=== PATIENT | male | born 1945 | race Caucasian/White ===

== ENCOUNTER 2017-05-13 07:35 | Emergency (ER) | payer MEDICARE, BC ==
[2017-05-13] MEDS ORDERED: Sodium Chloride 0.9% 2.5 ML Syringe FLUSH PRN ×2 (07:42)
[2017-05-13] MEDS ORDERED: Sodium Chloride 0.9% 1,000 ML IV ONE (07:42)
[2017-05-13] MEDS ORDERED: Ondansetron 4 MG/2 ML SDV IVPUSH ONE ×2 (07:42→11:27)
[2017-05-13] MEDS ORDERED: Sodium Chloride 0.9% 10 ML Syringe FLUSH PRN (07:42)
[2017-05-13] MEDS ORDERED: HYDROmorphone 1 MG/ML Syringe IVPUSH ONE (07:42)
[2017-05-13] MEDS ORDERED: Pantoprazole 40 MG Vial IVPUSH ONE (07:47)
--- NOTE | 2017-05-13 07:47 | EDM.PDOC ---
ED HPI GENERAL MEDICAL PROBLEM - General Chief Complaint: Abdominal Pain Stated Complaint: THROWING UP Time Seen by Provider: 05/13/17 07:36 - History of Present Illness INITIAL COMMENTS - FREE TEXT/NARRATIVE: HISTORY AND PHYSICAL: History of present illness: The patient is a 71-year-old male who follows at [facility] with Dr. Fleiz Mendes and has a history of cardiac disease with stents, hypertension, and a Juan -en-Y done in 2004 for peptic ulcer disease--- which included a cholecystectomy- -as well as an appendectomy and presents with onset of vomiting and diarrhea with abdominal pain that started last evening. Patient states he ate at a local restaurant last evening and the symptoms started after that. He states that the abdominal pain began after the vomiting and diarrhea. He had a normal day yesterday and has had no fevers chills or urinary complaints with the symptoms. He has no history of bowel obstructions and takes antacids on a regular basis and has had no history of problems with his peptic ulcer disease after his surgery. He has no chest pain or shortness of breath. He takes no anticoagulation therapy that he admits to. He can't keep any fluids down and has been nonstop vomiting now dry heaving and he has had at least 15 episodes of diarrhea which were mushy than watery and that are not black or bloody. His abdominal pain is diffuse and not localized right or left upper or lower. He did not take any medication for these problems. Patient does state that he is very thirsty when she could tolerate fluids. Note that the patient does take chronic pain medications for chronic hip pain Review of systems: As per history of present illness and below otherwise all systems reviewed and negative. Past medical history: As per history of present illness and as reviewed below otherwise noncontributory. Surgical history: As per history of present illness and as reviewed below otherwise noncontributory. Social history: No reported history of drug or alcohol abuse. Family history: As per history of present illness and as reviewed below otherwise noncontributory. Physical exam: Gen.: Well-developed well-nourished male who is nontoxic looks uncomfortable in the room and has some dry heaves. Vital signs of the note by me. HEENT: Atraumatic, normocephalic, pupils reactive, negative for conjunctival pallor or scleral icterus, mucous membranes dry, throat clear, neck supple, nontender, trachea midline. Lungs: Clear to auscultation, breath sounds equal bilaterally, chest nontender. Heart: S1S2, regular, negative for clicks, rubs, or JVD. Abdomen: Soft, nondistended, nontender. No specific area of tenderness appreciated on palpation and there is no tympany on percussion. Bowel sounds are hypoactive on my evaluation. There is no rebound or guarding. Negative for masses or hepatosplenomegaly. Negative for costovertebral tenderness. Pelvis: Stable nontender. Genitourinary: Deferred. Rectal: Deferred. Extremities: Atraumatic, negative for cords or calf pain. Neurovascular unremarkable. Neuro: Awake, alert, oriented. Cranial nerves II through XII unremarkable. Cerebellum unremarkable. Motor and sensory unremarkable throughout. Exam nonfocal. Diagnostics: CBC CMP amylase lipase UA CT scan of the abdomen and pelvis stool for Salmonella Shigella and culture Therapeutics: IV fluids and Zofran and Dilaudid Protonix Stool was collected in the ER and sent to the lab or study. It was light brown in color liquidy and foul-smelling. Patient and are aware of all testing results and care plan for home which includes Bentyl and Zofran hydration and bland diet. I've advised him that the stool culture will come back in several days and we will recontact them if any treatment is needed. I've advised him to follow-up with primary care and reasons to return to the ED Impression: Vomiting and diarrhea, mild dehydration Definitive disposition and diagnosis as appropriate pending reevaluation and review of above. Abdomen Pain Score (Numeric/FACES): 7 - Related Data Allergies Allergy/AdvReac Type Severity Reaction Status Date / Time Izspkun-Rbz-Sst Reductase Allergy Cannot Verified 05/13/17 07:39 Inhibitor Remember Home Meds: Home Meds Ferrous Gluconate [Iron] 150 units PO DAILY 01/06/17 [History] Hydrocodone/Acetaminophen [Hydrocodon-Acetaminophn 10-325] 1 - 2 tab PO Q6H PRN 01/06/17 [History] Olmesartan/Hydrochlorothiazide [Benicar HCT 20-12.5 MG] 1 tab PO DAILY 01/06/17 [History] Omeprazole 20 mg PO BIDAC 01/06/17 [History] Ibuprofen [Advil] 800 mg PO Q6HR 05/13/17 [History] Past Medical History Cardiovascular History: Reports: Other (See Below) Other Cardiovascular History: blockage, 2 stents placed Musculoskeletal History: Reports: Osteoarthritis Psychiatric History: Reports: Anxiety - Infectious Disease History Infectious Disease History: Reports: Chicken Pox - Past Surgical History HEENT Surgical History: Reports: Naso-Sinus Surgery Cardiovascular Surgical History: Reports: Coronary Artery Stent Social & Family History - Family History Family Medical History: Noncontributory - Tobacco Use Smoking Status *Q: Never Smoker - Caffeine Use Caffeine Use: Reports: None - Recreational Drug Use Recreational Drug Use: No ED ROS GENERAL - Review of Systems Review Of Systems: ROS reveals no pertinent complaints other than HPI. ED EXAM, GENERAL - Physical Exam Exam: See Below (See dictation) Course - Vital Signs Last Recorded V/S: Last Vital Signs Temp 36.8 C 05/13/17 09:52 Pulse 86 05/13/17 09:52 Resp 16 05/13/17 09:52 BP 126/70 05/13/17 09:52 Pulse Ox 93 L 05/13/17 09:52 - Orders/Labs/Meds Orders: Active Orders 24 hr Category Date Time Status CULTURE STOOL + CAMPY+SHIGATOX [RM] Stat Lab 05/13/17 09:30 Results Ondansetron [Zofran] Med 05/13/17 11:27 Once 4 mg IVPUSH ONETIME ONE Sodium Chloride 0.9% [Normal Saline] 1,000 ml Med 05/13/17 09:15 Active IV ASDIRECTED Sodium Chloride 0.9% [Saline Flush] Med 05/13/17 07:42 Active 10 ml FLUSH ASDIRECTED PRN Sodium Chloride 0.9% [Saline Flush] Med 05/13/17 07:42 Active 2.5 ml FLUSH ASDIRECTED PRN Sodium Chloride 0.9% [Saline Flush] Med 05/13/17 07:42 Active 2.5 ml FLUSH ASDIRECTED PRN Saline Lock Insert [OM.PC] Stat Oth 05/13/17 07:42 Ordered Medication Orders Sodium Chloride (Normal Saline) 1,000 mls @ 125 mls/hr IV ASDIRECTED PATRICE Last Admin: 05/13/17 09:18 Dose: 125 mls/hr Ondansetron HCl (Zofran) 4 mg IVPUSH ONETIME ONE Stop: 05/13/17 11:28 Sodium Chloride (Saline Flush) 2.5 ml FLUSH ASDIRECTED PRN PRN Reason: Keep Vein Open Last Admin: 05/13/17 07:59 Dose: 2.5 ml Sodium Chloride (Saline Flush) 10 ml FLUSH ASDIRECTED PRN PRN Reason: Keep Vein Open Last Admin: 05/13/17 07:59 Dose: 10 ml Sodium Chloride (Saline Flush) 2.5 ml FLUSH ASDIRECTED PRN PRN Reason: Keep Vein Open Last Admin: 05/13/17 08:04 Dose: 2.5 ml Labs: Laboratory Tests 05/13/17 05/13/17 05/13/17 Range/Units 07:45 07:45 09:30 WBC 9.71 (4.0-11.0) K/uL RBC 4.88 (4.50-5.90) M/uL Hgb 14.9 (13.0-17.0) g/dL Hct 43.5 (38.0-50.0) % MCV 89.1 (80.0-98.0) fL MCH 30.5 (27.0-32.0) pg MCHC 34.3 (31.0-37.0) g/dL RDW Std Deviation 42.5 (28.0-62.0) fl RDW Coeff of Kristin 13 (11.0-15.0) % Plt Count 305 (150-400) K/uL MPV 9.10 (7.40-12.00) fL Neut % (Auto) 90.2 H (48.0-80.0) % Lymph % (Auto) 5.8 L (16.0-40.0) % [place] % (Auto) 3.7 (0.0-15.0) % Eos % (Auto) 0.1 (0.0-7.0) % Baso % (Auto) 0.2 (0.0-1.5) % Neut # (Auto) 8.8 H (1.4-5.7) K/uL Lymph # (Auto) 0.6 (0.6-2.4) K/uL [place] # (Auto) 0.4 (0.0-0.8) K/uL Eos # (Auto) 0.0 (0.0-0.7) K/uL Baso # (Auto) 0.0 (0.0-0.1) K/uL Nucleated RBC % 0.0 /100WBC Nucleated RBCs # 0 K/uL Sodium 138 (136-146) mmol/L Potassium 4.8 (3.5-5.1) mmol/L Chloride 109 (98-110) mmol/L Carbon Dioxide 15 L (21-31) mmol/L BUN 24 H (6.0-23.0) mg/dL Creatinine 0.9 (0.6-1.5) mg/dL Est Cr Clr Drug Dosing 73.89 mL/min Estimated GFR (MDRD) > 60.0 ml/min Glucose 150 H (60-110) mg/dL Calcium 9.0 (8.8-10.8) mg/dL Total Bilirubin 0.7 (0.1-1.5) mg/dL AST 23 (5-40) IU/L ALT 20 (8-54) IU/L Alkaline Phosphatase 49 (40-150) Total Protein 7.3 (6.0-8.0) g/dL Albumin 4.2 (3.4-4.8) g/dL Globulin 3.1 (2.0-3.5) g/dL Albumin/Globulin Ratio 1.4 (1.3-2.8) Amylase 79 (10-90) U/L Lipase 40 (7-80) U/L Urine Color YELLOW Urine Appearance CLEAR Urine pH 6.0 (5.0-8.0) Ur Specific [place] 1.010 (1.001-1.035) Urine Protein NEGATIVE (NEGATIVE) mg/dL Urine Glucose (UA) NEGATIVE (NEGATIVE) mg/dL Urine Ketones NEGATIVE (NEGATIVE) mg/dL Urine Occult Blood NEGATIVE (NEGATIVE) Urine Nitrite NEGATIVE (NEGATIVE) Urine Bilirubin NEGATIVE (NEGATIVE) Urine Urobilinogen 0.2 (<2.0) EU/dL Ur Leukocyte Esterase NEGATIVE (NEGATIVE) Urine RBC 0-1 (0-2/HPF) Urine WBC 0-1 (0-5/HPF) Ur Epithelial Cells RARE (NONE-FEW) Urine Bacteria RARE (NEGATIVE) Urine Mucus MODERATE (NONE-MOD) Meds: Medications Generic Name Dose Route Start Last Admin Trade Name Freq PRN Reason Stop Dose Admin Sodium Chloride 1,000 mls @ 125 mls/hr 05/13/17 09:15 05/13/17 09:18 Normal Saline IV 125 mls/hr ASDIRECTED PATRICE Administration Ondansetron HCl 4 mg 05/13/17 11:27 Zofran IVPUSH 05/13/17 11:28 ONETIME ONE Sodium Chloride 2.5 ml 05/13/17 07:42 05/13/17 07:59 Saline Flush FLUSH 2.5 ml ASDIRECTED PRN Administration Keep Vein Open Sodium Chloride 10 ml 05/13/17 07:42 05/13/17 07:59 Saline Flush FLUSH 10 ml ASDIRECTED PRN Administration Keep Vein Open Sodium Chloride 2.5 ml 05/13/17 07:42 05/13/17 08:04 Saline Flush FLUSH 2.5 ml ASDIRECTED PRN Administration Keep Vein Open Discontinued Medications Generic Name Dose Route Start Last Admin Trade Name Freq PRN Reason Stop Dose Admin Hydromorphone HCl 1 mg 05/13/17 07:42 05/13/17 07:55 Dilaudid IVPUSH 05/13/17 07:43 1 mg ONETIME ONE Administration Hydromorphone HCl 0.5 mg 05/13/17 09:53 05/13/17 10:14 Dilaudid IVPUSH 05/13/17 09:54 0.5 mg ONETIME ONE Administration Sodium Chloride 1,000 mls @ 999 mls/hr 05/13/17 07:42 05/13/17 07:56 Normal Saline IV 05/13/17 08:42 999 mls/hr .Bolus ONE Administration Iopamidol 100 ml 05/13/17 09:38 05/13/17 09:46 Isovue Multipack-370 (76%) IVPUSH 05/13/17 09:39 100 ml ONETIME STA Administration Ondansetron HCl 4 mg 05/13/17 07:42 05/13/17 07:55 Zofran IVPUSH 05/13/17 07:43 4 mg ONETIME ONE Administration Pantoprazole Sodium 80 mg 05/13/17 07:47 05/13/17 07:55 Protonix Iv IVPUSH 05/13/17 07:48 80 mg .BOLUS ONE Administration Departure - Departure Time of Disposition: 11:28 Disposition: Home, Self-Care 01 Condition: Good Clinical Impression: Dehydration Vomiting Qualifiers: Vomiting type: unspecified Vomiting Intractability: non-intractable Nausea presence: with nausea Qualified Code(s): R11.2 - Nausea with vomiting, unspecified Diarrhea Qualifiers: Diarrhea type: unspecified type Qualified Code(s): R19.7 - Diarrhea, unspecified - Discharge Information Referrals: Feliz Mendes MD [Primary Care Provider] - Forms: ED Department Discharge Additional Instructions: The following information is given to patients seen in the emergency department who are being discharged to home. This information is to outline your options for follow-up care. We provide all patients seen in our emergency department with a follow-up referral. The need for follow-up, as well as the timing and circumstances, are variable depending upon the specifics of your emergency department visit. If you don't have a primary care physician on staff, we will provide you with a referral. We always advise you to contact your personal physician following an emergency department visit to inform them of the circumstance of the visit and for follow-up with them and/or the need for any referrals to a consulting specialist. The emergency department will also refer you to a specialist when appropriate. This referral assures that you have the opportunity for followup care with a specialist. All of these measure are taken in an effort to provide you with optimal care, which includes your followup. Under all circumstances we always encourage you to contact your private physician who remains a resource for coordinating your care. When calling for followup care, please make the office aware that this follow-up is from your recent emergency room visit. If for any reason you are refused follow-up, please contact the [facility] emergency department at and ask to speak to the emergency department charge nurse. [address] [place] [address] Please push fluids and bland diet. Use medications as needed and prescribed. You may also continue to take your pain medication you have at home which will help with any abdominal pain. You may also use [id number] Imodium if you choose. Please call and follow up with Dr. Mendes at [facility], your provider, in the next few days and return to ER as needed and as discussed. You will be contacted if the stool culture requires more treatment in the next several days - My Orders Last 24 Hours: My Active Orders 05/13/17 07:42 Sodium Chloride 0.9% [Saline Flush] 10 ml FLUSH ASDIRECTED PRN Sodium Chloride 0.9% [Saline Flush] 2.5 ml FLUSH ASDIRECTED PRN Sodium Chloride 0.9% [Saline Flush] 2.5 ml FLUSH ASDIRECTED PRN Saline Lock Insert [OM.PC] Stat 05/13/17 09:15 Sodium Chloride 0.9% [Normal Saline] 1,000 ml IV ASDIRECTED 05/13/17 09:30 CULTURE STOOL + CAMPY+SHIGATOX [RM] Stat 05/13/17 11:27 Ondansetron [Zofran] 4 mg IVPUSH ONETIME ONE - Assessment/Plan Last 24 Hours: My Active Orders 05/13/17 07:42 Sodium Chloride 0.9% [Saline Flush] 10 ml FLUSH ASDIRECTED PRN Sodium Chloride 0.9% [Saline Flush] 2.5 ml FLUSH ASDIRECTED PRN Sodium Chloride 0.9% [Saline Flush] 2.5 ml FLUSH ASDIRECTED PRN Saline Lock Insert [OM.PC] Stat 05/13/17 09:15 Sodium Chloride 0.9% [Normal Saline] 1,000 ml IV ASDIRECTED 05/13/17 09:30 CULTURE STOOL + CAMPY+SHIGATOX [RM] Stat 05/13/17 11:27 Ondansetron [Zofran] 4 mg IVPUSH ONETIME ONE
[2017-05-13 08:14] LABS: CHLORIDE,CL 109 mmol/L (98-110); SODIUM,NA 138 mmol/L (136-146)
[2017-05-13] MEDS ORDERED: Sodium Chloride 0.9% 1,000 ML IV SCH (09:15)
[2017-05-13] MEDS ORDERED: Iopamidol 755 MG/ML 500 ML Multipack Bottle IVPUSH STA (09:38)
[2017-05-13] MEDS ORDERED: HYDROmorphone 2 MG/ML Syringe IVPUSH ONE (09:53)
--- NOTE | 2017-05-13 10:04 | CT ---
CT of the abdomen and pelvis with contrast. HISTORY: Vomiting, diarrhea TECHNIQUE: Axial CT images were obtained of the abdomen and pelvis following administration of 100 m L of Isovue-370 without complication. Coronal and sagittal reconstructions obtained. FINDINGS: The lung bases are clear, no pleural effusion. The liver, spleen, adrenal glands, and pancreas appear normal. Cholecystectomy clips are noted. No bulky retroperitoneal lymphadenopathy or abdominal ascites. 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 Ventral mesh is noted along the anterior abdomen and pelvis. The kidneys enhance and function symmetrically without evidence of obstructive uropathy. The large and small bowel are grossly normal in caliber without evidence of obstruction. The large a nd small bowel loops are filled with fluid. There is mild dilatation at the distal anastomosis site of the small bowel without evidence of obstruction. Diverticulosis is noted within the sigmoid regio n without evidence of diverticulitis. There is a tiny fat-containing right inguinal hernia. The urin marcelino bladder appears normal. No bulky pelvic lymphadenopathy or free fluid. No free air. No suspicious osseous abnormalities identified. Severe joint space narrowing noted within the right hip. IMPRESSION: 1. Fluid noted throughout the large and small bowel without evidence of obstruction. 2. 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 3. Cholecystectomy.
[2017-05-13 11:55] VITALS: BP 103/58
== END 2017-05-13 11:55 | disposition home or self-care (01) ==
LOC: MW.ED 07:35
DX: E86.0 Dehydration (principal); R11.2 Nausea with vomiting, unspecified; R19.7 Diarrhea, unspecified; I10 Essential (primary) hypertension; M19.90 Unspecified osteoarthritis, unspecified site; F41.9 Anxiety disorder, unspecified; Z95.5 Presence of coronary angioplasty implant and graft; Z98.890 Other specified postprocedural states; Z79.899 Other long term (current) drug therapy; Z88.8 Allergy status to other drugs, medicaments and biological substances; Z90.49 Acquired absence of other specified parts of digestive tract
CPT/HCPCS: 36415; 74177; 80053; 81001; 82150; 83690; 85025; 87046; 96361; 96374; 96375; 96376; 99284; C9113; J1170; J2405; J7040; Q9967; 87899

== ENCOUNTER 2019-11-21 17:03 | Emergency (ER) | payer MEDICARE, BC ==
[2019-11-21] MEDS ORDERED: Sodium Chloride 0.9% 2.5 ML Syringe FLUSH PRN (17:06)
[2019-11-21] MEDS ORDERED: Sodium Chloride 0.9% 10 ML Syringe FLUSH PRN (17:06)
--- NOTE | 2019-11-21 17:33 | EDM.PDOC ---
<Rolando Lance - Last Filed: 11/21/19 21:15> ED HPI GENERAL MEDICAL PROBLEM - General Chief Complaint: Gastrointestinal Problem Stated Complaint: VOMITTING Time Seen by Provider: 11/21/19 17:28 - Related Data Allergies Allergy/AdvReac Type Severity Reaction Status Date / Time Cyzyxkg-Jzg-Jgs Reductase Allergy Cannot Verified 11/21/19 17:33 Inhibitor Remember Home Meds: Home Meds Ferrous Gluconate [Iron] 150 units PO DAILY 01/06/17 [History] Hydrocodone/Acetaminophen [Hydrocodon-Acetaminophn 10-325] 1 - 2 tab PO Q6H PRN 01/06/17 [History] Olmesartan/Hydrochlorothiazide [Benicar HCT 20-12.5 MG] 1 tab PO DAILY 01/06/17 [History] Omeprazole 20 mg PO BIDAC 01/06/17 [History] Ondansetron [Zofran ODT] 4 mg PO Q6H PRN #20 tab.dis 11/21/19 [Rx] ED ROS GENERAL - Review of Systems Review Of Systems: See Below ED EXAM, GI/ABD - Physical Exam Exam: See Below General Appearance: Alert, WD/WN, No Apparent Distress Ears: Normal External Exam, Normal Canal, Hearing Grossly Normal, Normal TMs Nose: Normal Inspection, Normal Mucosa Throat/Mouth: Normal Inspection, Normal Lips, Normal Teeth, Normal Oropharynx, Normal Voice, No Airway Compromise Head: Atraumatic, Normocephalic Neck: Normal Inspection, Supple, Non-Tender, Full Range of Motion Respiratory/Chest: No Respiratory Distress, Lungs Clear, Normal Breath Sounds, No Accessory Muscle Use, Chest Non-Tender Cardiovascular: Normal Peripheral Pulses, Regular Rate, Rhythm, No Edema, No Gallop, No JVD, No Murmur, No Rub GI/Abdominal Exam: Normal Bowel Sounds, Soft, Non-Tender, No Distention, No Abnormal Bruit, No Mass (Male) Exam: No Hernia, Normal Inspection Back Exam: Normal Inspection, Full Range of Motion Extremities: Normal Inspection, Normal Range of Motion, No Pedal Edema, Normal Capillary Refill, Joint Swelling Neurological: Alert, Oriented, CN II-XII Intact, Normal Cognition, Normal Gait, Normal Reflexes, No Motor/Sensory Deficits Psychiatric: Normal Affect Skin Exam: Warm, Dry, Intact, Normal Color Course - Vital Signs Text/Narrative:: This 74-year-old male presented with nausea and vomiting for the last 2 days. Patient was unable to hold down medication. Patient has a history of abdominal surgery and was awaiting CT scan. Patient CT scan came back as normal patient' s labs showed BUN of 32 creatinine of 1. Patient has received 1 L of fluid at this time states he is feels much better. Patient is also been given Zofran 4 mg. Patient will be giving an additional Zofran 4 mg and an additional liter of IV fluids. Patient will be discharged home at this time patient is feeling much better. Physical exam: Head ears eyes nose and throat are normal Lungs are clear to auscultation abdomen soft nontender patient is in no distress Fabiano patient care with patient he will be discharged on anti-emedics to follow- up with a primary care physician or return for any problems. Last Recorded V/S: Last Vital Signs Temp 37.3 C 11/21/19 20:22 Pulse 86 11/21/19 21:32 Resp 16 11/21/19 21:32 BP 115/64 11/21/19 21:32 Pulse Ox 95 11/21/19 21:32 - Orders/Labs/Meds Labs: Laboratory Tests 11/21/19 11/21/19 11/21/19 Range/Units 17:45 17:45 19:00 WBC 7.13 (4.0-11.0) K/uL RBC 4.80 (4.50-5.90) M/uL Hgb 14.1 (13.0-17.0) g/dL Hct 42.8 (38.0-50.0) % MCV 89.2 (80.0-98.0) fL MCH 29.4 (27.0-32.0) pg MCHC 32.9 (31.0-37.0) g/dL RDW Std Deviation 45.2 (28.0-62.0) fl RDW Coeff of Kristin 14 (11.0-15.0) % Plt Count 264 (150-400) K/uL MPV 9.00 (7.40-12.00) fL Neut % (Auto) 91.7 H (48.0-80.0) % Lymph % (Auto) 3.6 L (16.0-40.0) % [place] % (Auto) 4.3 (0.0-15.0) % Eos % (Auto) 0.1 (0.0-7.0) % Baso % (Auto) 0.3 (0.0-1.5) % Neut # (Auto) 6.5 H (1.4-5.7) K/uL Lymph # (Auto) 0.3 L (0.6-2.4) K/uL [place] # (Auto) 0.3 (0.0-0.8) K/uL Eos # (Auto) 0.0 (0.0-0.7) K/uL Baso # (Auto) 0.0 (0.0-0.1) K/uL Nucleated RBC % 0.0 /100WBC Nucleated RBCs # 0 K/uL Sodium 139 (136-148) mmol/L Potassium 4.1 (3.5-5.1) mmol/L Chloride 103 (98-107) mmol/L Carbon Dioxide 22.9 (21.0-32.0) mmol/L BUN 31 H (7.0-18.0) mg/dL Creatinine 1.0 (0.8-1.3) mg/dL Est Cr Clr Drug Dosing TNP Estimated GFR (MDRD) > 60.0 ml/min Glucose 124 H (74-106) mg/dL Calcium 8.7 (8.5-10.1) mg/dL Total Bilirubin 0.6 (0.2-1.0) mg/dL AST 19 (15-37) IU/L ALT 26 (14-63) IU/L Alkaline Phosphatase 55 (46-116) U/L Total Protein 7.2 (6.4-8.2) g/dL Albumin 3.5 (3.4-5.0) g/dL Globulin 3.7 (2.6-4.0) g/dL Albumin/Globulin Ratio 0.9 (0.9-1.6) Lipase 149 (73-393) U/L Urine Color YELLOW Urine Appearance CLEAR Urine pH 5.5 (5.0-8.0) Ur Specific [place] 1.010 (1.001-1.035) Urine Protein NEGATIVE (NEGATIVE) mg/dL Urine Glucose (UA) NEGATIVE (NEGATIVE) mg/dL Urine Ketones TRACE H (NEGATIVE) mg/dL Urine Occult Blood NEGATIVE (NEGATIVE) Urine Nitrite NEGATIVE (NEGATIVE) Urine Bilirubin NEGATIVE (NEGATIVE) Urine Urobilinogen 0.2 (<2.0) EU/dL Ur Leukocyte Esterase NEGATIVE (NEGATIVE) Meds: Medications Discontinued Medications Generic Name Dose Route Start Last Admin Trade Name Freq PRN Reason Stop Dose Admin Fentanyl 50 mcg 11/21/19 17:39 11/21/19 18:22 Fentanyl IVPUSH 11/21/19 17:40 50 mcg ONETIME ONE Administration Fentanyl Confirm 11/21/19 18:18 11/21/19 18:25 Sublimaze Administered 11/21/19 18:19 Not Given Dose 100 mcg .ROUTE .STK-MED ONE Sodium Chloride 1,000 mls @ 999 mls/hr 11/21/19 17:38 11/21/19 18:19 Normal Saline IV 11/21/19 18:38 999 mls/hr BOLUS ONE Administration Sodium Chloride 1,000 mls @ 1,000 mls/hr 11/21/19 20:35 11/21/19 20:43 Normal Saline IV 11/21/19 21:34 1,000 mls/hr .Bolus ONE Administration Iopamidol 85 ml 11/21/19 18:51 11/21/19 18:52 Isovue Multipack-370 (76%) IVPUSH 11/21/19 18:52 85 ml ONETIME ONE Administration Ondansetron HCl 4 mg 11/21/19 17:39 11/21/19 18:15 Zofran IVPUSH 11/21/19 17:40 4 mg ONETIME ONE Administration Ondansetron HCl 4 mg 11/21/19 20:37 11/21/19 20:43 Zofran IVPUSH 11/21/19 20:38 4 mg ONETIME ONE Administration Sodium Chloride 10 ml 11/21/19 17:06 Saline Flush FLUSH ASDIRECTED PRN Keep Vein Open Sodium Chloride 2.5 ml 11/21/19 17:06 Saline Flush FLUSH ASDIRECTED PRN Keep Vein Open Departure - Departure Time of Disposition: 21:18 Disposition: Home, Self-Care 01 Condition: Good Clinical Impression: Gastroenteritis and colitis, viral, Dehydration - Discharge Information Prescriptions: Ondansetron [Zofran ODT] 4 mg PO Q6H PRN #20 tab.dis PRN Reason: Nausea Instructions: Viral Gastroenteritis, Adult, [id number] Referrals: Feliz Mendes MD [Primary Care Provider] - Forms: ED Department Discharge Care Plan Goals: The following information is given to patients seen in the emergency department who are being discharged to home. This information is to outline your options for follow-up care. We provide all patients seen in our emergency department with a follow-up referral. The need for follow-up, as well as the timing and circumstances, are variable depending upon the specifics of your emergency department visit. If you don't have a primary care physician on staff, we will provide you with a referral. We always advise you to contact your personal physician following an emergency department visit to inform them of the circumstance of the visit and for follow-up with them and/or the need for any referrals to a consulting specialist. The emergency department will also refer you to a specialist when appropriate. This referral assures that you have the opportunity for follow-up care with a specialist. All of these measure are taken in an effort to provide you with optimal care, which includes your follow-up. Under all circumstances we always encourage you to contact your private physician who remains a resource for coordinating your care. When calling for follow-up care, please make the office aware that this follow-up is from your recent emergency room visit. If for any reason you are refused follow-up, please contact the [facility] Emergency Department at and asked to speak to the emergency department charge nurse. [facility] [address] [place] [address] [place] [address] Sepsis Event Note - Focused Exam Date Exam was Performed: 11/21/19 Time Exam was Performed: 21:15 <Argelia Varela - Last Filed: 11/23/19 07:10> ED HPI GENERAL MEDICAL PROBLEM - General Source of Information: Reports: Patient - History of Present Illness INITIAL COMMENTS - FREE TEXT/NARRATIVE: Patient is a 74-year-old male is complaining of having diffuse abdominal pain with nausea and vomiting for the past 2 to 3 days which is gotten worse today. She denies any hematemesis. Denies any melena. His abdominal pain is nonfocal. He rates this as moderate in intensity. There is no radiation of the pain. Patient's past medical history is complicated by him having a previous Juan-en-Y abdominal surgery. Had similar symptoms once in the past but has never been told he had a bowel obstruction or ileus. He denies any fever or chills and denies any dysuria or hematuria. Onset: Gradual Duration: Day(s): Location: Reports: Abdomen Quality: Reports: Ache, Dull Severity: Moderate Improves with: Reports: None Worsens with: Reports: Eating Associated Symptoms: Reports: Loss of Appetite, Nausea/Vomiting. Denies: Fever/ Chills body aches/abdominal Pain Score (Numeric/FACES): 2 Past Medical History Cardiovascular History: Reports: Other (See Below) Other Cardiovascular History: blockage, 2 stents placed Gastrointestinal History: Reports: Other (See Below) Musculoskeletal History: Reports: Osteoarthritis Psychiatric History: Reports: Anxiety - Infectious Disease History Infectious Disease History: Reports: Chicken Pox - Past Surgical History HEENT Surgical History: Reports: Naso-Sinus Surgery Cardiovascular Surgical History: Reports: Coronary Artery Stent Social & Family History - Family History Family Medical History: Noncontributory - Caffeine Use Caffeine Use: Reports: None Caffeine Use Comment: 4-5 cokes/day ED ROS GENERAL - Review of Systems Constitutional: Reports: Malaise. Denies: Fever, Diaphoresis Respiratory: Reports: No Symptoms Cardiovascular: Reports: No Symptoms Endocrine: Reports: No Symptoms GI/Abdominal: Reports: Abdominal Pain, Anorexia, Diarrhea, Nausea, Vomiting. Denies: Black Stool, Bloody Stool, Melena : Reports: No Symptoms Musculoskeletal: Reports: No Symptoms Skin: Reports: No Symptoms Neurological: Reports: No Symptoms Psychiatric: Reports: No Symptoms Course - Vital Signs Last Recorded V/S: Last Vital Signs Temp 37.3 C 11/21/19 20:22 Pulse 86 11/21/19 21:32 Resp 16 11/21/19 21:32 BP 115/64 11/21/19 21:32 Pulse Ox 95 11/21/19 21:32 - Orders/Labs/Meds Labs: Laboratory Tests 11/21/19 11/21/19 11/21/19 Range/Units 17:45 17:45 19:00 WBC 7.13 (4.0-11.0) K/uL RBC 4.80 (4.50-5.90) M/uL Hgb 14.1 (13.0-17.0) g/dL Hct 42.8 (38.0-50.0) % MCV 89.2 (80.0-98.0) fL MCH 29.4 (27.0-32.0) pg MCHC 32.9 (31.0-37.0) g/dL RDW Std Deviation 45.2 (28.0-62.0) fl RDW Coeff of Kristin 14 (11.0-15.0) % Plt Count 264 (150-400) K/uL MPV 9.00 (7.40-12.00) fL Neut % (Auto) 91.7 H (48.0-80.0) % Lymph % (Auto) 3.6 L (16.0-40.0) % [place] % (Auto) 4.3 (0.0-15.0) % Eos % (Auto) 0.1 (0.0-7.0) % Baso % (Auto) 0.3 (0.0-1.5) % Neut # (Auto) 6.5 H (1.4-5.7) K/uL Lymph # (Auto) 0.3 L (0.6-2.4) K/uL [place] # (Auto) 0.3 (0.0-0.8) K/uL Eos # (Auto) 0.0 (0.0-0.7) K/uL Baso # (Auto) 0.0 (0.0-0.1) K/uL Nucleated RBC % 0.0 /100WBC Nucleated RBCs # 0 K/uL Sodium 139 (136-148) mmol/L Potassium 4.1 (3.5-5.1) mmol/L Chloride 103 (98-107) mmol/L Carbon Dioxide 22.9 (21.0-32.0) mmol/L BUN 31 H (7.0-18.0) mg/dL Creatinine 1.0 (0.8-1.3) mg/dL Est Cr Clr Drug Dosing TNP Estimated GFR (MDRD) > 60.0 ml/min Glucose 124 H (74-106) mg/dL Calcium 8.7 (8.5-10.1) mg/dL Total Bilirubin 0.6 (0.2-1.0) mg/dL AST 19 (15-37) IU/L ALT 26 (14-63) IU/L Alkaline Phosphatase 55 (46-116) U/L Total Protein 7.2 (6.4-8.2) g/dL Albumin 3.5 (3.4-5.0) g/dL Globulin 3.7 (2.6-4.0) g/dL Albumin/Globulin Ratio 0.9 (0.9-1.6) Lipase 149 (73-393) U/L Urine Color YELLOW Urine Appearance CLEAR Urine pH 5.5 (5.0-8.0) Ur Specific [place] 1.010 (1.001-1.035) Urine Protein NEGATIVE (NEGATIVE) mg/dL Urine Glucose (UA) NEGATIVE (NEGATIVE) mg/dL Urine Ketones TRACE H (NEGATIVE) mg/dL Urine Occult Blood NEGATIVE (NEGATIVE) Urine Nitrite NEGATIVE (NEGATIVE) Urine Bilirubin NEGATIVE (NEGATIVE) Urine Urobilinogen 0.2 (<2.0) EU/dL Ur Leukocyte Esterase NEGATIVE (NEGATIVE) Sepsis Event Note - Focused Exam Date Exam was Performed: 11/23/19 Time Exam was Performed: 07:06
[2019-11-21] MEDS ORDERED: Sodium Chloride 0.9% 1,000 ML IV ONE ×2 (17:38→20:35)
[2019-11-21] MEDS ORDERED: Ondansetron 4 MG/2 ML SDV IVPUSH ONE ×2 (17:39→20:37)
[2019-11-21] MEDS ORDERED: fentaNYL 50 MCG/ML SDV IVPUSH ONE (17:39)
[2019-11-21] MEDS ORDERED: fentaNYL 100 MCG/2 ML SDV ONE (18:18)
[2019-11-21 18:21] LABS: BLOOD UREA NITROGEN,BUN 31 mg/dL (7.0-18.0); CARBON DIOXIDE,CO2 22.9 mmol/L (21.0-32.0); CHLORIDE,CL 103 mmol/L (98-107); GLUCOSE RANDOM 124 mg/dL (74-106); LIPASE 149 U/L (73-393); POTASSIUM,K 4.1 mmol/L (3.5-5.1); SODIUM,NA 139 mmol/L (136-148)
[2019-11-21] MEDS ORDERED: Iopamidol 755 MG/ML 200 ML Multipack Bottle IVPUSH ONE (18:51)
--- NOTE | 2019-11-21 19:15 | CT ---
Indication: Vomiting with diffuse abdominal pain Technique: Axial CT imaging through the abdomen and pelvis performed with and without intravenous contrast. 85 mL Isovue 370 contrast agent was administered intravenously. Sagittal and coronal reconstructions are provided. Comparison: CT abdomen pelvis with contrast 05/13/2017. Findings: There is no significant abnormality of the liver, spleen, pancreas, adrenal glands, and kidneys. Cholecystectomy clips are noted. There is evidence ventral abdominal wall hernia repair without recurrence. The portal vein is patent. There is normal caliber of the abdominal aorta. Surgical changes are noted stomach. There is mild diffuse distention of the small bowel with fluid. There is no transition point to suggest small bowel obstruction. Fluid is also seen throughout the colon. There is no colonic wall thickening or pericolonic inflammatory stranding. Diverticulosis is noted in the descending and sigmoid colon. The appendix is nonvisualized. There is no free intraperitoneal fluid. There is no pneumoperitoneum. There is no abdominal lymphadenopathy. The visualized osseous structures are unremarkable. The included lung bases are clear. Impression: 1. No acute inflammatory process demonstrated in the abdomen and pelvis. 2. Mild distention of the small bowel with fluid. No evidence of small-bowel obstruction. 3. Fluid in the colon, consistent with diarrhea. 4. Colonic diverticulosis without evidence of acute diverticulitis. Please note that all CT scans at this facility use dose modulation, iterative reconstruction, and/or weight-based dosing when appropriate to reduce radiation dose to as low as reasonably achievable. Dictated by Jonathan Alegre MD @ Nov 21 2019 7:15PM Signed by Dr. Jonathan Alegre @ Nov 21 2019 7:15PM
[2019-11-21 21:34] VITALS: BP 115/64; PULSE 86
== END 2019-11-21 21:55 | disposition home or self-care (01) ==
LOC: MW.ED 17:03
DX: E86.0 Dehydration (principal); A08.4 Viral intestinal infection, unspecified; Z88.8 Allergy status to other drugs, medicaments and biological substances
CPT/HCPCS: 36415; 74178; 80053; 81003; 83690; 85025; 87804; 96361; 96374; 96375; 96376; 99284; J2405; J3010; J7030; Q9967; 99283

== ENCOUNTER 2021-09-29 23:34 | Observation (INO) | payer MEDICARE, BC ==
[2021-09-29] MEDS ORDERED: fentaNYL 50 MCG/ML SDV IVPUSH ONE (23:56)
[2021-09-29] MEDS ORDERED: Sodium Chloride 0.9% 1,000 ML IV ONE (23:56)
[2021-09-30] MEDS ORDERED: Ondansetron 4 MG/2 ML SDV IVPUSH ONE
--- NOTE | 2021-09-30 | EDM.PDOC ---
ED HPI GENERAL MEDICAL PROBLEM - General Chief Complaint: Abdominal Pain Stated Complaint: VOMITING Time Seen by Provider: 09/29/21 23:35 Source of Information: Reports: Patient History Limitations: Reports: No Limitations - History of Present Illness INITIAL COMMENTS - FREE TEXT/NARRATIVE: Patient is a 76-year-old male who has history of abdominal issues and normally gets his pyloric sphincter dilated every 12 weeks presents today for abdominal pain. He had his pyloric sphincter dilated 5 weeks ago and normally can last until 11 weeks. Tonight he has some food and it would not pass he had vomiting and abdominal cramping. He states it feels like it normally does when he needs to have his pylorus been to dilated. He reports weakness and fatigue with not having did not eat or drink. Denies any fever chills. Says his belly is distended and diffusely tender. - Related Data Allergies Allergy/AdvReac Type Severity Reaction Status Date / Time [id number] Reductase Allergy Cannot Verified 09/29/21 23:48 Inhibitor Remember [Dqrypgq-Uqb-Mti Reductase Inhibitor] Home Meds: Home Meds Ferrous Gluconate [Iron] 150 units PO DAILY 01/06/17 [History] Hydrocodone/Acetaminophen [Hydrocodon-Acetaminophn 10-325] 1 - 2 tab PO Q6H PRN 01/06/17 [History] Olmesartan/Hydrochlorothiazide [Benicar HCT 20-12.5 MG] 1 tab PO DAILY 01/06/17 [History] Omeprazole 20 mg PO BIDAC 01/06/17 [History] Ondansetron [Zofran ODT] 4 mg PO Q6H PRN #20 tab.dis 11/21/19 [Rx] Past Medical History Cardiovascular History: Reports: Other (See Below) Other Cardiovascular History: blockage, 2 stents placed Gastrointestinal History: Reports: Other (See Below) Musculoskeletal History: Reports: Osteoarthritis Psychiatric History: Reports: Anxiety - Infectious Disease History Infectious Disease History: Reports: Chicken Pox - Past Surgical History HEENT Surgical History: Reports: Naso-Sinus Surgery Cardiovascular Surgical History: Reports: Coronary Artery Stent Social & Family History - Family History Family Medical History: No Pertinent Family History - Caffeine Use Caffeine Use: Reports: None Caffeine Use Comment: 4-5 cokes/day ED ROS GENERAL - Review of Systems Review Of Systems: See Below Constitutional: Reports: No Symptoms HEENT: Reports: No Symptoms Respiratory: Reports: No Symptoms Cardiovascular: Reports: No Symptoms Endocrine: Reports: No Symptoms GI/Abdominal: Reports: Abdominal Pain, Nausea, Vomiting : Reports: No Symptoms Musculoskeletal: Reports: No Symptoms Skin: Reports: No Symptoms Neurological: Reports: No Symptoms Psychiatric: Reports: No Symptoms Hematologic/Lymphatic: Reports: No Symptoms Immunologic: Reports: No Symptoms ED EXAM, GI/ABD - Physical Exam Exam: See Below Exam Limited By: No Limitations General Appearance: Alert, WD/WN, Mild Distress Head: Atraumatic Respiratory/Chest: No Respiratory Distress, Lungs Clear, Normal Breath Sounds Cardiovascular: Normal Peripheral Pulses, Regular Rate, Rhythm GI/Abdominal Exam: Normal Bowel Sounds, No Distention, Tender Back Exam: Normal Inspection Extremities: Normal Inspection, Normal Range of Motion Neurological: Alert, Oriented, Normal Cognition, Normal Gait Psychiatric: Normal Affect Course - Vital Signs Last Recorded V/S: Last Vital Signs Temp 97.1 F 09/29/21 23:49 Pulse 58 L 09/30/21 01:34 Resp 20 09/30/21 01:34 BP 165/83 H 09/30/21 01:34 Pulse Ox 96 09/30/21 01:34 - Orders/Labs/Meds Orders: Active Orders 24 hr Category Date Time Status Patient Status [ADT] Routine ADT 09/30/21 02:50 Ordered Abdomen 1V Upright [CR] Stat Exams 09/30/21 01:38 Ordered NG Tube Placement [CR] Stat Exams 09/30/21 01:38 Ordered LACTIC ACID [CHEM] Stat Lab 09/30/21 02:44 Ordered Sodium Chloride 0.9% [Normal Saline] 1,000 ml Med 09/30/21 02:45 Active IV ASDIRECTED Medication Orders Sodium Chloride (Normal Saline) 1,000 mls @ 150 mls/hr IV ASDIRECTED PATRICE Labs: Laboratory Tests 09/29/21 09/29/21 09/30/21 Range/Units 23:55 23:55 01:40 WBC 11.00 (4.0-11.0) K/uL RBC 4.76 (4.50-5.90) M/uL Hgb 13.8 (13.0-17.0) g/dL Hct 41.9 (38.0-50.0) % MCV 88.0 (80.0-98.0) fL MCH 29.0 (27.0-32.0) pg MCHC 32.9 (31.0-37.0) g/dL RDW Std Deviation 44.9 (28.0-62.0) fl RDW Coeff of Kristin 14 (11.0-15.0) % Plt Count 122 L (150-400) K/uL MPV 9.50 (7.40-12.00) fL Neut % (Auto) 69.2 (48.0-80.0) % Lymph % (Auto) 19.9 (16.0-40.0) % [place] % (Auto) 7.7 (0.0-15.0) % Eos % (Auto) 2.7 (0.0-7.0) % Baso % (Auto) 0.5 (0.0-1.5) % Neut # (Auto) 7.6 H (1.4-5.7) K/uL Lymph # (Auto) 2.2 (0.6-2.4) K/uL [place] # (Auto) 0.9 H (0.0-0.8) K/uL Eos # (Auto) 0.3 (0.0-0.7) K/uL Baso # (Auto) 0.1 (0.0-0.1) K/uL Nucleated RBC % 0.0 /100WBC Nucleated RBCs # 0 K/uL Sodium 137 (136-148) mmol/L Potassium 4.3 (3.5-5.1) mmol/L Chloride 102 (98-107) mmol/L Carbon Dioxide 25.2 (21.0-32.0) mmol/L BUN 20 H (7.0-18.0) mg/dL Creatinine 1.0 (0.8-1.3) mg/dL Est Cr Clr Drug Dosing 61.75 mL/min Estimated GFR (MDRD) > 60.0 ml/min Glucose 127 H (74-106) mg/dL Calcium 8.8 (8.5-10.1) mg/dL Phosphorus 4.3 (2.6-4.7) mg/dL Magnesium 2.0 (1.8-2.4) mg/dL Total Bilirubin 0.2 (0.2-1.0) mg/dL AST 21 (15-37) IU/L ALT 24 (14-63) IU/L Alkaline Phosphatase 57 (46-116) U/L Troponin I < 0.050 (0.000-0.056) ng/mL Total Protein 7.5 (6.4-8.2) g/dL Albumin 3.3 L (3.4-5.0) g/dL Globulin 4.2 H (2.6-4.0) g/dL Albumin/Globulin Ratio 0.8 L (0.9-1.6) Lipase 128 (73-393) U/L SARS-CoV-2 RNA (VALARIE) NEGATIVE (NEGATIVE) Meds: Medications Generic Name Dose Route Start Last Admin Trade Name Freq PRN Reason Stop Dose Admin Sodium Chloride 1,000 mls @ 150 mls/hr 09/30/21 02:45 Normal Saline IV ASDIRECTED PATRICE Discontinued Medications Generic Name Dose Route Start Last Admin Trade Name Freq PRN Reason Stop Dose Admin Alum [place]/Mag [place]/Simeth XS 0 ml 09/30/21 00:35 09/30/21 00:42 15 ml/ Lidocaine HCl 5 ml PO 09/30/21 00:36 15 each ONETIME ONE Administration Famotidine 20 mg 09/30/21 00:35 09/30/21 00:42 Famotidine 20 Mg/2 Ml Sdv IVPUSH 09/30/21 00:36 20 mg ONETIME ONE Administration Fentanyl 50 mcg 09/29/21 23:56 09/30/21 00:05 Fentanyl 50 Mcg/Ml Sdv IVPUSH 09/29/21 23:57 50 mcg ONETIME ONE Administration Hydromorphone HCl 1 mg 09/30/21 01:16 09/30/21 01:20 Hydromorphone 1 Mg/Ml Syringe IVPUSH 09/30/21 01:17 1 mg ONETIME ONE Administration Hydromorphone HCl 1 mg 09/30/21 02:48 Hydromorphone 1 Mg/Ml Syringe IVPUSH 09/30/21 02:49 ONETIME ONE Sodium Chloride 1,000 mls @ 999 mls/hr 09/29/21 23:56 09/30/21 00:05 Normal Saline IV 09/30/21 00:56 999 mls/hr .BOLUS ONE Administration Iopamidol 100 ml 09/30/21 01:01 09/30/21 01:01 Iopamidol 755 Mg/Ml 500 Ml Multipack Bottle IVPUSH 09/30/21 01:02 100 ml ONETIME ONE Administration Ondansetron HCl 4 mg 09/30/21 00:00 09/30/21 00:05 Ondansetron 4 Mg/2 Ml Sdv IVPUSH 09/30/21 00:01 4 mg ONETIME ONE Administration - Re-Assessments/Exams Free Text/Narrative Re-Assessment/Exam: 09/30/21 02:[address] scan shows a small bowel obstruction. We spoke to general surgery and they recommended admitting patient observation to medicine. We spoke to medicine as well and they will admit patient have surgery follow-up. Patient continues look wellWas to be started on maintenance fluids and have NG tube placed as well. Departure - Departure Time of Disposition: 02:53 Disposition: Refer to Observation Condition: Good Clinical Impression: SBO (small bowel obstruction) - Discharge Information Referrals: Feliz Mendes MD [Primary Care Provider] - Forms: ED Department Discharge Sepsis Event Note (ED) - Focused Exam Vital Signs: Vital Signs Temp Pulse Resp BP Pulse Ox 09/30/21 01:34 58 L 20 165/83 H 96 09/30/21 00:40 60 19 159/84 H 97 09/29/21 23:49 97.1 F 62 20 170/85 H 96 - My Orders Last 24 Hours: My Active Orders 09/30/21 01:38 Abdomen 1V Upright [CR] Stat NG Tube Placement [CR] Stat 09/30/21 02:44 LACTIC ACID [CHEM] Stat 09/30/21 02:45 Sodium Chloride 0.9% [Normal Saline] 1,000 ml IV ASDIRECTED 09/30/21 02:50 Patient Status [ADT] Routine - Assessment/Plan Last 24 Hours: My Active Orders 09/30/21 01:38 Abdomen 1V Upright [CR] Stat NG Tube Placement [CR] Stat 09/30/21 02:44 LACTIC ACID [CHEM] Stat 09/30/21 02:45 Sodium Chloride 0.9% [Normal Saline] 1,000 ml IV ASDIRECTED 09/30/21 02:50 Patient Status [ADT] Routine Plan: Patient is a 76-year-old male who presents today for diffuse abdominal pain. Patient has a history where he needs to have his pylorus sphincter dilated. We will obtain labs CAT scan provide pain control and reassess patient.
[2021-09-30 00:25] LABS: BLOOD UREA NITROGEN,BUN 20 mg/dL (7.0-18.0); CARBON DIOXIDE,CO2 25.2 mmol/L (21.0-32.0); CHLORIDE,CL 102 mmol/L (98-107); GLUCOSE RANDOM 127 mg/dL (74-106); LIPASE 128 U/L (73-393); POTASSIUM,K 4.3 mmol/L (3.5-5.1); SODIUM,NA 137 mmol/L (136-148)
[2021-09-30] MEDS ORDERED: Alum Hydro/Mag Hydro/Simeth XS 15 ML, Lidocaine 2% 5 ML PO ONE ×2 (00:35)
[2021-09-30] MEDS ORDERED: Famotidine 20 MG/2 ML SDV IVPUSH ONE (00:35)
[2021-09-30] MEDS ORDERED: Iopamidol 755 MG/ML 500 ML Multipack Bottle IVPUSH ONE (01:01)
[2021-09-30] MEDS ORDERED: HYDROmorphone 1 MG/ML Syringe IVPUSH ONE ×2 (01:16→02:48)
--- NOTE | 2021-09-30 01:32 | CT ---
INDICATION: Abdominal pain and vomiting TECHNIQUE: CT abdomen and pelvis acquired with 100 cc Isovue 370 IV contrast. COMPARISON: November 21, 2019 FINDINGS: Lower chest: Coronary artery calcifications. Fluid in the distal esophagus. Liver: Unremarkable. Spleen: Unremarkable. Pancreas: Unremarkable. Gallbladder and bile ducts: S/p cholecystectomy. Adrenal glands: Unremarkable. Kidneys: Unremarkable. GI tract: Suture line in the distal stomach. Colonic diverticulosis. Fluid-filled loops bowel measuring up to 7.2 cm in diameter. Transition point appears to be near anastomotic suture line in the small bowel in the left lateral abdomen. Vascular structures: Unremarkable. Lymph nodes: Unremarkable. Miscellaneous: Status post ventral herniorrhaphy with mesh placement. Small fat containing right inguinal hernia. No free air or significant free fluid. Pelvic Organs: Unremarkable. Bones: Unremarkable for age. IMPRESSION: Small-bowel obstruction. Transition point appears to be near anastomotic suture line in the left lateral abdomen. Coronary artery disease. Fluid in the distal esophagus suggests reflux disease. Colonic diverticulosis. Postsurgical changes in the distal stomach. Status post cholecystectomy. Status post ventral herniorrhaphy with mesh placement. Please note that all CT scans at this facility use dose modulation, iterative reconstruction, and/or weight-based dosing when appropriate to reduce radiation dose to as low as reasonably achievable. Dictated by Ana Dunham MD @ 09/30/2021 1:31:30 AM (Electronically Signed)
[2021-09-30] MEDS ORDERED: Sodium Chloride 0.9% 1,000 ML IV SCH (02:45)
--- NOTE | 2021-09-30 04:00 | CR ---
Indication: Gastric tube placement Technique: KUB 1 view Comparison: None Findings/Impression: Gastric drainage tube tip terminates at the level of the mid stomach. Nonspecific bowel gas ventral herniorrhaphy polina and surgical polina in the upper abdomen. Visualized lungs are clear.. Dictated by Ana Dunham MD @ 09/30/2021 3:58:26 AM (Electronically Signed)
[2021-09-30] MEDS ORDERED: Albuterol/Ipratropium 3.0-0.5 MG/3 ML Neb Soln NEB PRN (05:23)
[2021-09-30] MEDS ORDERED: LORazepam 2 MG/ML SDV IVPUSH ONE (05:24)
--- NOTE | 2021-09-30 05:39 | CR ---
Indication: NG tube adjustment Technique: KUB 1 view Comparison: Same date at 3:02 a.m. Findings/Impression: : A gastric drainage tube tip terminates at the level of the proximal stomach with the distal side hole at the level of the gastroesophageal junction. This should be slightly advanced. Nonspecific bowel gas pattern. Surgical clips in the upper abdomen. Lung bases are clear. Dictated by Ana Dunham MD @ 09/30/2021 5:38:45 AM (Electronically Signed)
[2021-09-30] MEDS ORDERED: Pantoprazole 40 MG Vial ONE (05:57)
[2021-09-30] MEDS ORDERED: Lactated Ringers 1,000 ML IV SCH (06:00)
[2021-09-30] MEDS ORDERED: Pantoprazole 40 MG in Sodium Chloride 0.9% 10 ML IV SCH ×2 (06:00→08:36)
[2021-09-30] MEDS: HYDROmorphone 1 MG/ML Syringe IVPUSH PRN ×3 (06:24→17:52)
[2021-09-30] MEDS: Enoxaparin 40 MG/0.4 ML Syringe SUBCUT SCH (06:25)
[2021-09-30 07:25] LABS: BLOOD UREA NITROGEN,BUN 19 mg/dL (7.0-18.0); CARBON DIOXIDE,CO2 27.6 mmol/L (21.0-32.0); CHLORIDE,CL 104 mmol/L (98-107); GLUCOSE RANDOM 141 mg/dL (74-106); POTASSIUM,K 4.7 mmol/L (3.5-5.1); SODIUM,NA 139 mmol/L (136-148)
--- NOTE | 2021-09-30 08:47 | PCM.HP.2 ---
<Shelley Jung - Last Filed: 09/30/21 10:39> H&P History of Present Illness - General Date of Service: 09/30/21 Admit Problem/Dx: Admission Diagnosis/Problem Admission Diagnosis/Problem Small bowel obstruction - History of Present Illness Initial Comments - Free Text/Narative: The patient is a 76-year-old male, on day 1 of service, with a significant past medical history of coronary artery disease with stent placement, osteoarthritis, anxiety, and pyloric sphincter stenosis, who was admitted to the medical floor due to small bowel obstruction. The patient upon interview reports that every 12 weeks he has his pyloric sphincter dilated due to stenosis which occurs causing him to feel early satiety, and can cause nausea and vomiting. The patient reports that 5 to 6 weeks ago he had this procedure done however it did not last the full 12 weeks and yesterday he started to have hypogastric abdominal pain which is 3 out of 10 in intensity, dull in nature, and nonradiating; he also had a feeling of food not passing through his GI system. As a result he started to have vomiting of gastric contents which was nonbilious and nonbloody. He feels as if his pyloric sphincter at this point was not properly dilated. He has no other complaints at this time. On CBC, his white blood cell count is 9.40, hemoglobin is 11.9, hematocrit is 36.6, and platelet count is 303. On CMP, his sodium is 139, potassium is 4.7, chloride is 104, carbon dioxide is 27.6, BUN is 19, creatinine is 0.9. His troponin levels were normal as well as lipase levels. CT of the abdomen showed a small bowel obstruction in the left lateral abdomen, coronary artery calcifications, reflux disease represented by fluid in the distal esophagus, status post cholecystectomy, and status post ventral hernio rrhaphy with meshing. In the emergency department, the patient had a upright abdominal x-ray, an NG tube placed, a lactic acid blood draw, a 1 L bolus of normal saline, and the following medications administered including famotidine 20 mg IV push, fentanyl 50 mcg IV push, hydromorphone 1 mg IV push, and Zofran 4 mg IV push. - Related Data Allergies/Adverse Reactions: Allergies Allergy/AdvReac Type Severity Reaction Status Date / Time Jvrangz-[id number]-UfC Reductase Allergy Leg Cramps Verified 09/30/21 04:54 Inhibitor [Fzwoaqs-Wvf-Iir Reductase Inhibitor] Home Medications: Home Meds Ferrous Gluconate [Iron] 150 units PO BID 01/06/17 [History] Hydrocodone/Acetaminophen [Hydrocodon-Acetaminophn 10-325] 1 - 2 tab PO Q8H PRN 01/06/17 [History] Olmesartan/Hydrochlorothiazide [Benicar HCT 20-12.5 MG] 1 tab PO DAILY 01/06/17 [History] Omeprazole 20 mg PO BIDAC 01/06/17 [History] Past Medical History Cardiovascular History: Reports: CAD, Hypertension, Other (See Below) Other Cardiovascular History: blockage, 2 stents placed Gastrointestinal History: Reports: GERD, Other (See Below) Musculoskeletal History: Reports: Osteoarthritis Psychiatric History: Reports: Anxiety - Infectious Disease History Infectious Disease History: Reports: Chicken Pox - Past Surgical History HEENT Surgical History: Reports: Naso-Sinus Surgery Cardiovascular Surgical History: Reports: Coronary Artery Stent GI Surgical History: Reports: Appendectomy, Cholecystectomy Other GI Surgeries/Procedures: Juan-En-Y Gastric Bypass Surgery Musculoskeletal Surgical History: Reports: None Social & Family History - Family History Family Medical History: No Pertinent Family History - Tobacco Use Tobacco Use Status *Q: Never Tobacco User Second Hand Smoke Exposure: No - Caffeine Use Caffeine Use: Reports: Soda Caffeine Use Comment: 4-5 cokes/day - Recreational Drug Use Recreational Drug Use: No H&P Review of Systems - Review of Systems: Review Of Systems: See Below General: Denies: Fever, Chills, Fatigue HEENT: Denies: Headaches, Sore Throat Pulmonary: Denies: Shortness of Breath, Wheezing, Cough Cardiovascular: Denies: Chest Pain, Palpitations Gastrointestinal: Reports: Abdominal Pain, Nausea, Vomiting Genitourinary: Denies: Dysuria Exam - Exam Exam: See Below - Vital Signs Vital Signs: Last Vital Signs Temp 97.1 F 09/29/21 23:49 Pulse 53 L 09/30/21 03:44 Resp 19 09/30/21 03:44 BP 145/69 H 09/30/21 03:44 Pulse Ox 97 09/30/21 03:44 Weight: 76.929 kg - Exam General: Alert, Oriented, Cooperative HEENT: Mucosa Moist & [place] Neck: No: Lymphadenopathy Lungs: Clear to Auscultation, Normal Respiratory Effort Cardiovascular: Regular Rate, Regular Rhythm GI/Abdominal Exam: Normal Bowel Sounds, Tender (SCDs in place bilaterally) - Patient Data Lab Results Last 24 hrs: Laboratory Results - last 24 hr 09/29/21 09/29/21 09/30/21 Range/Units 23:55 23:55 01:40 WBC 11.00 (4.0-11.0) K/uL RBC 4.76 (4.50-5.90) M/uL Hgb 13.8 (13.0-17.0) g/dL Hct 41.9 (38.0-50.0) % MCV 88.0 (80.0-98.0) fL MCH 29.0 (27.0-32.0) pg MCHC 32.9 (31.0-37.0) g/dL RDW Std Deviation 44.9 (28.0-62.0) fl RDW Coeff of Kristin 14 (11.0-15.0) % Plt Count 122 L (150-400) K/uL MPV 9.50 (7.40-12.00) fL Neut % (Auto) 69.2 (48.0-80.0) % Lymph % (Auto) 19.9 (16.0-40.0) % Bee % (Auto) 7.7 (0.0-15.0) % Eos % (Auto) 2.7 (0.0-7.0) % Baso % (Auto) 0.5 (0.0-1.5) % Neut # (Auto) 7.6 H (1.4-5.7) K/uL Lymph # (Auto) 2.2 (0.6-2.4) K/uL Bee # (Auto) 0.9 H (0.0-0.8) K/uL Eos # (Auto) 0.3 (0.0-0.7) K/uL Baso # (Auto) 0.1 (0.0-0.1) K/uL Nucleated RBC % 0.0 /100WBC Nucleated RBCs # 0 K/uL Sodium 137 (136-148) mmol/L Potassium 4.3 (3.5-5.1) mmol/L Chloride 102 (98-107) mmol/L Carbon Dioxide 25.2 (21.0-32.0) mmol/L BUN 20 H (7.0-18.0) mg/dL Creatinine 1.0 (0.8-1.3) mg/dL Est Cr Clr Drug Dosing 61.75 mL/min Estimated GFR (MDRD) > 60.0 ml/min Glucose 127 H (74-106) mg/dL Lactic Acid (0.4-2.0) mmol/L Calcium 8.8 (8.5-10.1) mg/dL Phosphorus 4.3 (2.6-4.7) mg/dL Magnesium 2.0 (1.8-2.4) mg/dL Total Bilirubin 0.2 (0.2-1.0) mg/dL AST 21 (15-37) IU/L ALT 24 (14-63) IU/L Alkaline Phosphatase 57 (46-116) U/L Troponin I < 0.050 (0.000-0.056) ng/mL Total Protein 7.5 (6.4-8.2) g/dL Albumin 3.3 L (3.4-5.0) g/dL Globulin 4.2 H (2.6-4.0) g/dL Albumin/Globulin Ratio 0.8 L (0.9-1.6) Lipase 128 (73-393) U/L SARS-CoV-2 RNA (VALARIE) NEGATIVE (NEGATIVE) 09/30/21 09/30/21 09/30/21 Range/Units 02:52 05:53 05:53 WBC 9.40 (4.0-11.0) K/uL RBC 4.18 L (4.50-5.90) M/uL Hgb 11.9 L (13.0-17.0) g/dL Hct 36.6 L (38.0-50.0) % MCV 87.6 (80.0-98.0) fL MCH 28.5 (27.0-32.0) pg MCHC 32.5 (31.0-37.0) g/dL RDW Std Deviation 44.6 (28.0-62.0) fl RDW Coeff of Kristin 14 (11.0-15.0) % Plt Count 303 (150-400) K/uL MPV 9.10 (7.40-12.00) fL Neut % (Auto) 89.9 H (48.0-80.0) % Lymph % (Auto) 6.4 L (16.0-40.0) % Bee % (Auto) 3.4 (0.0-15.0) % Eos % (Auto) 0.1 (0.0-7.0) % Baso % (Auto) 0.2 (0.0-1.5) % Neut # (Auto) 8.5 H (1.4-5.7) K/uL Lymph # (Auto) 0.6 (0.6-2.4) K/uL Bee # (Auto) 0.3 (0.0-0.8) K/uL Eos # (Auto) 0.0 (0.0-0.7) K/uL Baso # (Auto) 0.0 (0.0-0.1) K/uL Nucleated RBC % 0.0 /100WBC Nucleated RBCs # 0 K/uL Sodium 139 (136-148) mmol/L Potassium 4.7 (3.5-5.1) mmol/L Chloride 104 (98-107) mmol/L Carbon Dioxide 27.6 (21.0-32.0) mmol/L BUN 19 H (7.0-18.0) mg/dL Creatinine 0.9 (0.8-1.3) mg/dL Est Cr Clr Drug Dosing 68.61 mL/min Estimated GFR (MDRD) > 60.0 ml/min Glucose 141 H (74-106) mg/dL Lactic Acid 1.0 (0.4-2.0) mmol/L Calcium 8.4 L (8.5-10.1) mg/dL Phosphorus 3.9 (2.6-4.7) mg/dL Magnesium 1.6 L (1.8-2.4) mg/dL Total Bilirubin 0.3 (0.2-1.0) mg/dL AST 13 L (15-37) IU/L ALT 22 (14-63) IU/L Alkaline Phosphatase 49 (46-116) U/L Troponin I (0.000-0.056) ng/mL Total Protein 6.1 L (6.4-8.2) g/dL Albumin 2.8 L (3.4-5.0) g/dL Globulin 3.3 (2.6-4.0) g/dL Albumin/Globulin Ratio 0.9 (0.9-1.6) Lipase (73-393) U/L SARS-CoV-2 RNA (VALARIE) (NEGATIVE) Result Diagrams: 09/30/21 05:53 09/30/21 05:53 Sepsis Event Note - Focused Exam Vital Signs: Vital Signs Temp Pulse Resp BP Pulse Ox 09/30/21 03:44 53 L 19 145/69 H 97 09/30/21 03:13 61 20 160/78 H 96 09/30/21 01:34 58 L 20 165/83 H 96 09/30/21 00:40 60 19 159/84 H 97 09/29/21 23:49 97.1 F 62 20 170/85 H 96 - Problem List (1) CAD (coronary artery disease) SNOMED Code(s): 80660506 ICD Code: I25.10 - ATHSCL HEART DISEASE OF [place] CORONARY ARTERY W/O ANG PCTRS Status: Acute Current Visit: Yes (2) SBO (small bowel obstruction) SNOMED Code(s): 383408798 ICD Code: K56.609 - UNSP INTESTNL OBST, UNSP TO PARTIAL VERSUS COMPLETE OBST Status: Acute Current Visit: Yes (3) Vomiting SNOMED Code(s): 398748240 ICD Code: R11.10 - VOMITING, UNSPECIFIED Status: Acute Current Visit: No Qualifiers: Vomiting type: unspecified Vomiting Intractability: non-intractable Nausea presence: with nausea Qualified Code(s): R11.2 - Nausea with vomiting, unspecified Problem List Initiated/Reviewed/Updated: Yes Orders Last 24hrs: Active Orders 24 hr Category Date Time Status Patient Status [ADT] Routine ADT 09/30/21 02:50 Active Accu Check [Blood Glucose Check, Bedside] [RC] Q6H Care 09/30/21 06:00 Active Ambulate [RC] ASDIRECTED Care 09/30/21 05:19 Active Antiembolic Devices [RC] PER UNIT ROUTINE Care 09/30/21 05:20 Active Communication Order [RC] Q6H Care 09/30/21 06:00 Active Notify Provider Consults [RC] ASDIRECTED Care 09/30/21 05:21 Active RT Aerosol Therapy [RC] ASDIRECTED Care 09/30/21 05:24 Active Telemetry Monitoring [Cardiac Monitoring] [RC] Q8HR Care 09/30/21 03:55 Active Vital Signs [RC] Q4H Care 09/30/21 05:19 Active Consult to Physician [CONS] Routine Cons 09/30/21 05:20 Active NPO [Nothing Per Oral Diet] [DIET] Diet 09/30/21 Breakfast Active Abdomen 1V Upright [CR] Stat Exams 09/30/21 01:38 Taken Albuterol/Ipratropium [DuoNeb 3.0-0.5 MG/3 ML] Med 09/30/21 05:23 Active 3 ml NEB Q6HRRT PRN Dextrose 5%-Lactated Ringers 1,000 ml Med 09/30/21 08:45 Ordered IV ASDIRECTED Enoxaparin [Lovenox] Med 09/30/21 06:00 Active 40 mg SUBCUT Q24H HYDROmorphone [Dilaudid] Med 09/30/21 05:23 Active 1 mg IVPUSH Q3H PRN Lactated Ringers [Ringers, Lactated] 1,000 ml Med 09/30/21 06:00 Active IV ASDIRECTED Pantoprazole [ProTONIX IV] 40 mg Med 10/01/21 06:00 Active Sodium Chloride 0.9% [Normal Saline] 10 ml IV Q24H Sodium Chloride 0.9% [Normal Saline] 1,000 ml Med 09/30/21 02:45 Active IV ASDIRECTED SCD [Sequential Compression Device] [OM.PC] Routine Oth 09/30/21 05:19 Ordered Medication Orders Albuterol/Ipratropium (Albuterol/Ipratropium 3.0-0.5 Mg/3 Ml Neb Soln) 3 ml NEB Q6HRRT PRN PRN Reason: Shortness of Breath Enoxaparin Sodium (Enoxaparin 40 Mg/0.4 Ml Syringe) 40 mg SUBCUT Q24H PATRICE Last Admin: 09/30/21 06:25 Dose: 40 mg Documented by: MEGHAN Hydromorphone HCl (Hydromorphone 1 Mg/Ml Syringe) 1 mg IVPUSH Q3H PRN PRN Reason: Pain Last Admin: 09/30/21 06:24 Dose: 1 mg Documented by: MEGHAN Sodium Chloride (Normal Saline) 1,000 mls @ 150 mls/hr IV ASDIRECTED PATRICE Last Admin: 09/30/21 03:10 Dose: 150 mls/hr Documented by: SEAGMIC Lactated Ringer's (Ringers, Lactated) 1,000 mls @ 125 mls/hr IV ASDIRECTED [facility] Pantoprazole Sodium 40 mg/ (Sodium Chloride) 10 mls @ 300 mls/hr IV Q24H PATRICE Dextrose/Lactated Ringer's (Dextrose 5%-Lactated Ringers) 1,000 mls @ 125 mls/hr IV ASDIRECTED [facility] Assessment/Plan Comment:: Admit the patient to the medical floor, vitals per unit routine, activity up ad anuradha., n.p.o., full code, GI prophylaxis with pantoprazole 40 mg every 24 hours, DVT prophylaxis with Lovenox 40 mg subcutaneously every 24 hours as well as SCDs bilaterally. Daily CBC/CMP 1. Small bowel obstruction -The patient is currently n.p.o., and has had a NG tube placed and is on lactated Ringer's and D5 1000 mL at a rate of 125 mL/h to maintain hydration/nutrition. -Dr. Dasilva from surgery was consulted and saw the patient. She recommended that we continue with conservative measures and the NG tube. -For pain we will continue with Dilaudid 1 mg IV push every 3 hours -We will continue to monitor the patient for clinical improvements 2. Coronary artery disease -The patient is on telemetry and we will continue to monitor his heart's electrical function <Tessie Zuniga - Last Filed: 09/30/21 16:40> H&P History of Present Illness - General Admit Problem/Dx: Admission Diagnosis/Problem Admission Diagnosis/Problem Small bowel obstruction Exam - Vital Signs Vital Signs: Last Vital Signs Temp 36.9 C 09/30/21 13:00 Pulse 56 L 09/30/21 13:00 Resp 16 09/30/21 13:00 BP 130/68 09/30/21 13:00 Pulse Ox 95 09/30/21 13:00 - Patient Data Lab Results Last 24 hrs: Laboratory Results - last 24 hr 09/29/21 09/29/21 09/30/21 Range/Units 23:55 23:55 01:40 WBC 11.00 (4.0-11.0) K/uL RBC 4.76 (4.50-5.90) M/uL Hgb 13.8 (13.0-17.0) g/dL Hct 41.9 (38.0-50.0) % MCV 88.0 (80.0-98.0) fL MCH 29.0 (27.0-32.0) pg MCHC 32.9 (31.0-37.0) g/dL RDW Std Deviation 44.9 (28.0-62.0) fl RDW Coeff of Kristin 14 (11.0-15.0) % Plt Count 122 L (150-400) K/uL MPV 9.50 (7.40-12.00) fL Neut % (Auto) 69.2 (48.0-80.0) % Lymph % (Auto) 19.9 (16.0-40.0) % Bee % (Auto) 7.7 (0.0-15.0) % Eos % (Auto) 2.7 (0.0-7.0) % Baso % (Auto) 0.5 (0.0-1.5) % Neut # (Auto) 7.6 H (1.4-5.7) K/uL Lymph # (Auto) 2.2 (0.6-2.4) K/uL Bee # (Auto) 0.9 H (0.0-0.8) K/uL Eos # (Auto) 0.3 (0.0-0.7) K/uL Baso # (Auto) 0.1 (0.0-0.1) K/uL Nucleated RBC % 0.0 /100WBC Nucleated RBCs # 0 K/uL Sodium 137 (136-148) mmol/L Potassium 4.3 (3.5-5.1) mmol/L Chloride 102 (98-107) mmol/L Carbon Dioxide 25.2 (21.0-32.0) mmol/L BUN 20 H (7.0-18.0) mg/dL Creatinine 1.0 (0.8-1.3) mg/dL Est Cr Clr Drug Dosing 61.75 mL/min Estimated GFR (MDRD) > 60.0 ml/min Glucose 127 H (74-106) mg/dL POC Glucose (70-99) mg/dL Lactic Acid (0.4-2.0) mmol/L Calcium 8.8 (8.5-10.1) mg/dL Phosphorus 4.3 (2.6-4.7) mg/dL Magnesium 2.0 (1.8-2.4) mg/dL Total Bilirubin 0.2 (0.2-1.0) mg/dL AST 21 (15-37) IU/L ALT 24 (14-63) IU/L Alkaline Phosphatase 57 (46-116) U/L Troponin I < 0.050 (0.000-0.056) ng/mL Total Protein 7.5 (6.4-8.2) g/dL Albumin 3.3 L (3.4-5.0) g/dL Globulin 4.2 H (2.6-4.0) g/dL Albumin/Globulin Ratio 0.8 L (0.9-1.6) Lipase 128 (73-393) U/L SARS-CoV-2 RNA (VALARIE) NEGATIVE (NEGATIVE) 09/30/21 09/30/21 09/30/21 Range/Units 02:52 05:53 05:53 WBC 9.40 (4.0-11.0) K/uL RBC 4.18 L (4.50-5.90) M/uL Hgb 11.9 L (13.0-17.0) g/dL Hct 36.6 L (38.0-50.0) % MCV 87.6 (80.0-98.0) fL MCH 28.5 (27.0-32.0) pg MCHC 32.5 (31.0-37.0) g/dL RDW Std Deviation 44.6 (28.0-62.0) fl RDW Coeff of Kristin 14 (11.0-15.0) % Plt Count 303 (150-400) K/uL MPV 9.10 (7.40-12.00) fL Neut % (Auto) 89.9 H (48.0-80.0) % Lymph % (Auto) 6.4 L (16.0-40.0) % Bee % (Auto) 3.4 (0.0-15.0) % Eos % (Auto) 0.1 (0.0-7.0) % Baso % (Auto) 0.2 (0.0-1.5) % Neut # (Auto) 8.5 H (1.4-5.7) K/uL Lymph # (Auto) 0.6 (0.6-2.4) K/uL Bee # (Auto) 0.3 (0.0-0.8) K/uL Eos # (Auto) 0.0 (0.0-0.7) K/uL Baso # (Auto) 0.0 (0.0-0.1) K/uL Nucleated RBC % 0.0 /100WBC Nucleated RBCs # 0 K/uL Sodium 139 (136-148) mmol/L Potassium 4.7 (3.5-5.1) mmol/L Chloride 104 (98-107) mmol/L Carbon Dioxide 27.6 (21.0-32.0) mmol/L BUN 19 H (7.0-18.0) mg/dL Creatinine 0.9 (0.8-1.3) mg/dL Est Cr Clr Drug Dosing 68.61 mL/min Estimated GFR (MDRD) > 60.0 ml/min Glucose 141 H (74-106) mg/dL POC Glucose (70-99) mg/dL Lactic Acid 1.0 (0.4-2.0) mmol/L Calcium 8.4 L (8.5-10.1) mg/dL Phosphorus 3.9 (2.6-4.7) mg/dL Magnesium 1.6 L (1.8-2.4) mg/dL Total Bilirubin 0.3 (0.2-1.0) mg/dL AST 13 L (15-37) IU/L ALT 22 (14-63) IU/L Alkaline Phosphatase 49 (46-116) U/L Troponin I (0.000-0.056) ng/mL Total Protein 6.1 L (6.4-8.2) g/dL Albumin 2.8 L (3.4-5.0) g/dL Globulin 3.3 (2.6-4.0) g/dL Albumin/Globulin Ratio 0.9 (0.9-1.6) Lipase (73-393) U/L SARS-CoV-2 RNA (VALARIE) (NEGATIVE) 09/30/21 Range/Units 08:39 WBC (4.0-11.0) K/uL RBC (4.50-5.90) M/uL Hgb (13.0-17.0) g/dL Hct (38.0-50.0) % MCV (80.0-98.0) fL MCH (27.0-32.0) pg MCHC (31.0-37.0) g/dL RDW Std Deviation (28.0-62.0) fl RDW Coeff of Kristin (11.0-15.0) % Plt Count (150-400) K/uL MPV (7.40-12.00) fL Neut % (Auto) (48.0-80.0) % Lymph % (Auto) (16.0-40.0) % Bee % (Auto) (0.0-15.0) % Eos % (Auto) (0.0-7.0) % Baso % (Auto) (0.0-1.5) % Neut # (Auto) (1.4-5.7) K/uL Lymph # (Auto) (0.6-2.4) K/uL Bee # (Auto) (0.0-0.8) K/uL Eos # (Auto) (0.0-0.7) K/uL Baso # (Auto) (0.0-0.1) K/uL Nucleated RBC % /100WBC Nucleated RBCs # K/uL Sodium (136-148) mmol/L Potassium (3.5-5.1) mmol/L Chloride (98-107) mmol/L Carbon Dioxide (21.0-32.0) mmol/L BUN (7.0-18.0) mg/dL Creatinine (0.8-1.3) mg/dL Est Cr Clr Drug Dosing mL/min Estimated GFR (MDRD) ml/min Glucose (74-106) mg/dL POC Glucose 106 H (70-99) mg/dL Lactic Acid (0.4-2.0) mmol/L Calcium (8.5-10.1) mg/dL Phosphorus (2.6-4.7) mg/dL Magnesium (1.8-2.4) mg/dL Total Bilirubin (0.2-1.0) mg/dL AST (15-37) IU/L ALT (14-63) IU/L Alkaline Phosphatase (46-116) U/L Troponin I (0.000-0.056) ng/mL Total Protein (6.4-8.2) g/dL Albumin (3.4-5.0) g/dL Globulin (2.6-4.0) g/dL Albumin/Globulin Ratio (0.9-1.6) Lipase (73-393) U/L SARS-CoV-2 RNA (VALARIE) (NEGATIVE) Result Diagrams: 09/30/21 05:53 09/30/21 05:53 Sepsis Event Note - Focused Exam Vital Signs: Vital Signs Temp Pulse Resp BP Pulse Ox 09/30/21 13:00 36.9 C 56 L 16 130/68 95 09/30/21 09:19 36.6 C 55 L 16 122/58 L 95 09/30/21 05:00 36.8 C 55 L 19 147/72 H 96 Orders Last 24hrs: Active Orders 24 hr Category Date Time Status Patient Status [ADT] Routine ADT 09/30/21 02:50 Active Accu Check [Blood Glucose Check, Bedside] [RC] Q6H Care 09/30/21 06:00 Active Ambulate [RC] ASDIRECTED Care 09/30/21 05:19 Active Antiembolic Devices [RC] PER UNIT ROUTINE Care 09/30/21 05:20 Active Communication Order [RC] Q6H Care 09/30/21 06:00 Active Notify Provider Consults [RC] ASDIRECTED Care 09/30/21 05:21 Active RT Aerosol Therapy [RC] ASDIRECTED Care 09/30/21 05:24 Active Telemetry Monitoring [Cardiac Monitoring] [RC] Q8H Care 09/30/21 03:55 Active Vital Signs [RC] Q4H Care 09/30/21 05:19 Active Consult to Physician [CONS] Routine Cons 09/30/21 05:20 Active NPO [Nothing Per Oral Diet] [DIET] Diet 09/30/21 Breakfast Active CBC WITH AUTO DIFF [HEME] AM Lab 10/01/21 05:11 Ordered CBC WITH AUTO DIFF [HEME] AM Lab 10/02/21 05:11 Ordered CMP [COMPREHENSIVE METABOLIC PN,CMP] [CHEM] AM Lab 10/01/21 05:11 Ordered CMP [COMPREHENSIVE METABOLIC PN,CMP] [CHEM] AM Lab 10/02/21 05:11 Ordered Albuterol/Ipratropium [DuoNeb 3.0-0.5 MG/3 ML] Med 09/30/21 05:23 Active 3 ml NEB Q6HRRT PRN Dextrose 5%-Lactated Ringers 1,000 ml Med 09/30/21 08:45 Active IV Q8H Enoxaparin [Lovenox] Med 09/30/21 06:00 Active 40 mg SUBCUT Q24H HYDROmorphone [Dilaudid] Med 09/30/21 05:23 Active 1 mg IVPUSH Q3H PRN Pantoprazole [ProTONIX IV] 40 mg Med 10/01/21 06:00 Active Sodium Chloride 0.9% [Normal Saline] 10 ml IV Q24H Sodium Chloride 0.9% [Normal Saline] 1,000 ml Med 09/30/21 02:45 Active IV ASDIRECTED SCD [Sequential Compression Device] [OM.PC] Routine Oth 09/30/21 05:19 Ordered Code Status [Resuscitation Status] Routine Resus Stat 09/30/21 10:37 Ordered Medication Orders Albuterol/Ipratropium (Albuterol/Ipratropium 3.0-0.5 Mg/3 Ml Neb Soln) 3 ml NEB Q6HRRT PRN PRN Reason: Shortness of Breath Enoxaparin Sodium (Enoxaparin 40 Mg/0.4 Ml Syringe) 40 mg SUBCUT Q24H PATRICE Last Admin: 09/30/21 06:25 Dose: 40 mg Documented by: MEGHAN Hydromorphone HCl (Hydromorphone 1 Mg/Ml Syringe) 1 mg IVPUSH Q3H PRN PRN Reason: Pain Last Admin: 09/30/21 11:10 Dose: 1 mg Documented by: Admin: 09/30/21 06:24 Dose: 1 mg Documented by: MEGHAN Sodium Chloride (Normal Saline) 1,000 mls @ 150 mls/hr IV ASDIRECTED PATRICE Last Admin: 09/30/21 03:10 Dose: 150 mls/hr Documented by: RASHID Pantoprazole Sodium 40 mg/ (Sodium Chloride) 10 mls @ 300 mls/hr IV Q24H PATRICE Dextrose/Lactated Ringer's (Dextrose 5%-Lactated Ringers) 1,000 mls @ 125 mls/hr IV Q8H PATRICE Last Admin: 09/30/21 09:38 Dose: 125 mls/hr Documented by: SAMANTHA Cosigned by: MARLIN Assessment/Plan Comment:: I performed a history and physical exam of the patient and discussed management with resident. I have reviewed the residents note and agree with documented findings and plan unless otherwise specified in my note. I have seen and evaluated the patient and agree with the residents note unless specified in my note
[2021-09-30] MEDS: Dextrose 5%-Lactated Ringers 1,000 ML IV SCH ×2 (09:38→18:00)
[2021-09-30] MEDS ORDERED: Magnesium Sulfate/Water 4 GM in Premix Bag 1 BAG IV ONE (11:15)
--- NOTE | 2021-09-30 13:32 | CR ---
EXAM DATE: 09/30/21 PATIENT'S AGE: 76 Patient: JESSE FERNANDEZ Facility: [facility] . Site : [id number] Study: XRay-Abdomen -09/30/2021 3:09:30 AM Ordering Physician: Garrick Arenas Final Report: Indication: Gastric tube placement Technique: KUB 1 view Comparison: None Findings/Impression: Gastric drainage tube tip terminates at the level of the mid stomach. Nonspecific bowel gas ventral herniorrhaphy polina and surgical polina in the upper abdomen. Visualized lungs are clear.. Dictated by Ana Dunham MD @ 09/30/2021 3:58:26 AM Signed by: Ana Dunham MD @09/30/2021 3:58:26 AM (Electronic Signature) Report Signed by Proxy. [facility]
--- NOTE | 2021-09-30 14:44 | PCM.CONS ---
H&P History of Present Illness - General Date of Service: 09/30/21 Admit Problem/Dx: Admission Diagnosis/Problem Admission Diagnosis/Problem Small bowel obstruction Source of Information: Patient History Limitations: Reports: No Limitations - History of Present Illness Initial Comments - Free Text/Narative: Patient is a 76 year old male who presents with a SBO. He has a history of a stomach surgery. When I looked at his previous record and CT it appears that he had a juan en y type bypass/antrectomy for acid reduction or Bilroth procedure in the past. This was complicated by GJ anastomotic stricture which he sees a GI physician in [facility]. He has had multiple dilations of the anastomosis. His last one was ~ 5 weeks ago. He has a history of a laparoscopic ventral hernia repair with mesh and metal tacks as well as a coronary stent for CAD. He states that a couple days ago he started feeling unwell. Yesterday he developed nausea and vomiting. His abdomen became painful and distended. He presented to the ER. His vitals were stable. His labs were grossly stable. A CT scan was performed that showed multiple dilated loops of small bowel with dilation and a transition point at an anastomotic line in the small bowel. There was no free air. He had an NG placed and was admitted to medicine. I came to see him in the morning. He stated that since the NG placement his abdominal pain had improved. His physical exam was unremarkable. He had a soft abdomen with no tenderness. I did an abdominal exam later in the afternoon and his abdomen was softer yet with ~500 cc of saab output from the NG. His vitals have remained stable. - Related Data Allergies/Adverse Reactions: Allergies Allergy/AdvReac Type Severity Reaction Status Date / Time Jrtysxx-VTF-ThH Reductase Allergy Leg Cramps Verified 09/30/21 04:54 Inhibitor [Vwnsxlu-Nyy-Ceu Reductase Inhibitor] Home Medications: Home Meds Ferrous Gluconate [Iron] 150 units PO BID 01/06/17 [History] Hydrocodone/Acetaminophen [Hydrocodon-Acetaminophn 10-325] 1 - 2 tab PO Q8H PRN 01/06/17 [History] Olmesartan/Hydrochlorothiazide [Benicar HCT 20-12.5 MG] 1 tab PO DAILY 01/06/17 [History] Omeprazole 20 mg PO BIDAC 01/06/17 [History] Past Medical History Cardiovascular History: Reports: CAD, Hypertension, Other (See Below) Other Cardiovascular History: blockage, 2 stents placed Gastrointestinal History: Reports: GERD, Other (See Below) Musculoskeletal History: Reports: Osteoarthritis Psychiatric History: Reports: Anxiety - Infectious Disease History Infectious Disease History: Reports: Chicken Pox - Past Surgical History HEENT Surgical History: Reports: Naso-Sinus Surgery Cardiovascular Surgical History: Reports: Coronary Artery Stent GI Surgical History: Reports: Appendectomy, Cholecystectomy Other GI Surgeries/Procedures: Juan-En-Y Gastric Bypass Surgery Musculoskeletal Surgical History: Reports: None Social & Family History - Family History Family Medical History: No Pertinent Family History - Tobacco Use Tobacco Use Status *Q: Never Tobacco User Second Hand Smoke Exposure: No - Caffeine Use Caffeine Use: Reports: Soda Caffeine Use Comment: 4-5 cokes/day - Recreational Drug Use Recreational Drug Use: No H&P Review of Systems - Review of Systems: Review Of Systems: Comprehensive ROS is negative, except as noted in HPI. General: Reports: No Symptoms HEENT: Reports: No Symptoms Pulmonary: Reports: No Symptoms Cardiovascular: Reports: No Symptoms Gastrointestinal: Reports: Abdominal Pain, Distension, Nausea, Vomiting. Denies: Flatus, Hematochezia, Melena Musculoskeletal: Reports: No Symptoms Skin: Reports: No Symptoms Exam - Exam Exam: See Below - Vital Signs Vital Signs: Last Vital Signs Temp 36.9 C 09/30/21 13:00 Pulse 56 L 09/30/21 13:00 Resp 16 09/30/21 13:00 BP 130/68 09/30/21 13:00 Pulse Ox 95 09/30/21 13:00 Weight: 76.929 kg - Exam General: Alert, Oriented HEENT: Conjunctiva Clear Neck: Supple, Trachea Midline Lungs: Clear to Auscultation, Normal Respiratory Effort Cardiovascular: Regular Rate, Regular Rhythm GI/Abdominal Exam: Soft, Non-Tender, No Abnormal Bruit, Pelvis Stable Back Exam: Normal Inspection Extremities: Normal Inspection - Patient Data Lab Results Last 24 hrs: Laboratory Results - last 24 hr 09/29/21 09/29/21 09/30/21 Range/Units 23:55 23:55 01:40 WBC 11.00 (4.0-11.0) K/uL RBC 4.76 (4.50-5.90) M/uL Hgb 13.8 (13.0-17.0) g/dL Hct 41.9 (38.0-50.0) % MCV 88.0 (80.0-98.0) fL MCH 29.0 (27.0-32.0) pg MCHC 32.9 (31.0-37.0) g/dL RDW Std Deviation 44.9 (28.0-62.0) fl RDW Coeff of Kristin 14 (11.0-15.0) % Plt Count 122 L (150-400) K/uL MPV 9.50 (7.40-12.00) fL Neut % (Auto) 69.2 (48.0-80.0) % Lymph % (Auto) 19.9 (16.0-40.0) % Addison % (Auto) 7.7 (0.0-15.0) % Eos % (Auto) 2.7 (0.0-7.0) % Baso % (Auto) 0.5 (0.0-1.5) % Neut # (Auto) 7.6 H (1.4-5.7) K/uL Lymph # (Auto) 2.2 (0.6-2.4) K/uL Addison # (Auto) 0.9 H (0.0-0.8) K/uL Eos # (Auto) 0.3 (0.0-0.7) K/uL Baso # (Auto) 0.1 (0.0-0.1) K/uL Nucleated RBC % 0.0 /100WBC Nucleated RBCs # 0 K/uL Sodium 137 (136-148) mmol/L Potassium 4.3 (3.5-5.1) mmol/L Chloride 102 (98-107) mmol/L Carbon Dioxide 25.2 (21.0-32.0) mmol/L BUN 20 H (7.0-18.0) mg/dL Creatinine 1.0 (0.8-1.3) mg/dL Est Cr Clr Drug Dosing 61.75 mL/min Estimated GFR (MDRD) > 60.0 ml/min Glucose 127 H (74-106) mg/dL POC Glucose (70-99) mg/dL Lactic Acid (0.4-2.0) mmol/L Calcium 8.8 (8.5-10.1) mg/dL Phosphorus 4.3 (2.6-4.7) mg/dL Magnesium 2.0 (1.8-2.4) mg/dL Total Bilirubin 0.2 (0.2-1.0) mg/dL AST 21 (15-37) IU/L ALT 24 (14-63) IU/L Alkaline Phosphatase 57 (46-116) U/L Troponin I < 0.050 (0.000-0.056) ng/mL Total Protein 7.5 (6.4-8.2) g/dL Albumin 3.3 L (3.4-5.0) g/dL Globulin 4.2 H (2.6-4.0) g/dL Albumin/Globulin Ratio 0.8 L (0.9-1.6) Lipase 128 (73-393) U/L SARS-CoV-2 RNA (VALARIE) NEGATIVE (NEGATIVE) 09/30/21 09/30/21 09/30/21 Range/Units 02:52 05:53 05:53 WBC 9.40 (4.0-11.0) K/uL RBC 4.18 L (4.50-5.90) M/uL Hgb 11.9 L (13.0-17.0) g/dL Hct 36.6 L (38.0-50.0) % MCV 87.6 (80.0-98.0) fL MCH 28.5 (27.0-32.0) pg MCHC 32.5 (31.0-37.0) g/dL RDW Std Deviation 44.6 (28.0-62.0) fl RDW Coeff of Kristin 14 (11.0-15.0) % Plt Count 303 (150-400) K/uL MPV 9.10 (7.40-12.00) fL Neut % (Auto) 89.9 H (48.0-80.0) % Lymph % (Auto) 6.4 L (16.0-40.0) % Addison % (Auto) 3.4 (0.0-15.0) % Eos % (Auto) 0.1 (0.0-7.0) % Baso % (Auto) 0.2 (0.0-1.5) % Neut # (Auto) 8.5 H (1.4-5.7) K/uL Lymph # (Auto) 0.6 (0.6-2.4) K/uL Addison # (Auto) 0.3 (0.0-0.8) K/uL Eos # (Auto) 0.0 (0.0-0.7) K/uL Baso # (Auto) 0.0 (0.0-0.1) K/uL Nucleated RBC % 0.0 /100WBC Nucleated RBCs # 0 K/uL Sodium 139 (136-148) mmol/L Potassium 4.7 (3.5-5.1) mmol/L Chloride 104 (98-107) mmol/L Carbon Dioxide 27.6 (21.0-32.0) mmol/L BUN 19 H (7.0-18.0) mg/dL Creatinine 0.9 (0.8-1.3) mg/dL Est Cr Clr Drug Dosing 68.61 mL/min Estimated GFR (MDRD) > 60.0 ml/min Glucose 141 H (74-106) mg/dL POC Glucose (70-99) mg/dL Lactic Acid 1.0 (0.4-2.0) mmol/L Calcium 8.4 L (8.5-10.1) mg/dL Phosphorus 3.9 (2.6-4.7) mg/dL Magnesium 1.6 L (1.8-2.4) mg/dL Total Bilirubin 0.3 (0.2-1.0) mg/dL AST 13 L (15-37) IU/L ALT 22 (14-63) IU/L Alkaline Phosphatase 49 (46-116) U/L Troponin I (0.000-0.056) ng/mL Total Protein 6.1 L (6.4-8.2) g/dL Albumin 2.8 L (3.4-5.0) g/dL Globulin 3.3 (2.6-4.0) g/dL Albumin/Globulin Ratio 0.9 (0.9-1.6) Lipase (73-393) U/L SARS-CoV-2 RNA (VALARIE) (NEGATIVE) 09/30/21 Range/Units 08:39 WBC (4.0-11.0) K/uL RBC (4.50-5.90) M/uL Hgb (13.0-17.0) g/dL Hct (38.0-50.0) % MCV (80.0-98.0) fL MCH (27.0-32.0) pg MCHC (31.0-37.0) g/dL RDW Std Deviation (28.0-62.0) fl RDW Coeff of Kristin (11.0-15.0) % Plt Count (150-400) K/uL MPV (7.40-12.00) fL Neut % (Auto) (48.0-80.0) % Lymph % (Auto) (16.0-40.0) % Addison % (Auto) (0.0-15.0) % Eos % (Auto) (0.0-7.0) % Baso % (Auto) (0.0-1.5) % Neut # (Auto) (1.4-5.7) K/uL Lymph # (Auto) (0.6-2.4) K/uL Addison # (Auto) (0.0-0.8) K/uL Eos # (Auto) (0.0-0.7) K/uL Baso # (Auto) (0.0-0.1) K/uL Nucleated RBC % /100WBC Nucleated RBCs # K/uL Sodium (136-148) mmol/L Potassium (3.5-5.1) mmol/L Chloride (98-107) mmol/L Carbon Dioxide (21.0-32.0) mmol/L BUN (7.0-18.0) mg/dL Creatinine (0.8-1.3) mg/dL Est Cr Clr Drug Dosing mL/min Estimated GFR (MDRD) ml/min Glucose (74-106) mg/dL POC Glucose 106 H (70-99) mg/dL Lactic Acid (0.4-2.0) mmol/L Calcium (8.5-10.1) mg/dL Phosphorus (2.6-4.7) mg/dL Magnesium (1.8-2.4) mg/dL Total Bilirubin (0.2-1.0) mg/dL AST (15-37) IU/L ALT (14-63) IU/L Alkaline Phosphatase (46-116) U/L Troponin I (0.000-0.056) ng/mL Total Protein (6.4-8.2) g/dL Albumin (3.4-5.0) g/dL Globulin (2.6-4.0) g/dL Albumin/Globulin Ratio (0.9-1.6) Lipase (73-393) U/L SARS-CoV-2 RNA (VALARIE) (NEGATIVE) Result Diagrams: 09/30/21 05:53 09/30/21 05:53 Sepsis Event Note - Evaluation Sepsis Screening Result: No Definite Risk - Focused Exam Vital Signs: Vital Signs Temp Pulse Resp BP Pulse Ox 09/30/21 13:00 36.9 C 56 L 16 130/68 95 09/30/21 09:19 36.6 C 55 L 16 122/58 L 95 09/30/21 05:00 36.8 C 55 L 19 147/72 H 96 09/30/21 03:44 53 L 19 145/69 H 97 09/30/21 03:13 61 20 160/78 H 96 Consult PN Assessment/Plan Procedures: Procedures ASSAY OF AMYLASE (05/13/17) ASSAY OF LIPASE (11/21/19) COMPLETE CBC W/AUTO DIFF WBC (11/21/19) COMPREHEN METABOLIC PANEL (11/21/19) CT ABD & PELV 1/> REGNS (11/21/19) CT ABD & PELV W/CONTRAST (05/13/17) EMERGENCY DEPT VISIT (11/21/19) EMERGENCY DEPT VISIT (01/06/17) EXC F/E/E/N/L MAL+MRG 1.1-2 (08/25/16) HYDRATE IV INFUSION ADD-ON (11/21/19) IMMUNIZATION ADMIN (01/06/17) INFLUENZA ASSAY W/OPTIC (11/21/19) OFFICE O/P NEW SF 15-29 MIN (08/25/16) ROUTINE VENIPUNCTURE (11/21/19) STOOL CULTR AEROBIC BACT EA (05/13/17) TDAP VACCINE 7 YRS/> IM (01/06/17) THER/PROPH/DIAG INJ IV PUSH (11/21/19) THER/PROPH/DIAG IV INF INIT (07/03/21) TISSUE EXAM BY PATHOLOGIST (01/11/18) TX/PRO/DX INJ NEW DRUG ADDON (11/21/19) TX/PRO/DX INJ SAME DRUG SOLAR SALES ADVISOR (11/21/19) URINALYSIS AUTO W/O SCOPE (11/21/19) URINALYSIS AUTO W/SCOPE (05/13/17) (1) SBO (small bowel obstruction) SNOMED Code(s): 700636227 Code(s): K56.609 - UNSP INTESTNL OBST, UNSP TO PARTIAL VERSUS COMPLETE OBST Current Visit: Yes Problem List Initiated/Reviewed/Updated: Yes Plan: The patient is responding well to conservative management. I visited with the patient and his family. I explained what the CT scan showed and what I believe his anatomic orientation is. Ultimately I would continue conservative management at this time. If he hasn't passed gas by tomorrow would consider Gastrografin follow through study. Agree with ongoing NG for a full 24 hours at least. Continue IVF resuscitation and electrolyte replacement. Will reassess in the am. Given his complex intra-abdominal anatomy, if he needed surgery I would transfer him to a hospital with greater surgical resources.
[2021-09-30] MEDS ORDERED: LORazepam 2 MG/ML SDV ONE (21:34)
[2021-10-01] MEDS: HYDROmorphone 1 MG/ML Syringe IVPUSH PRN ×3 (00:39→10:02)
[2021-10-01] MEDS: Dextrose 5%-Lactated Ringers 1,000 ML IV SCH ×2 (01:22→09:57)
[2021-10-01] MEDS: Pantoprazole 40 MG in Sodium Chloride 0.9% 10 ML IV SCH (06:08)
[2021-10-01] MEDS: Enoxaparin 40 MG/0.4 ML Syringe SUBCUT SCH (06:08)
[2021-10-01 06:40] LABS: BLOOD UREA NITROGEN,BUN 14 mg/dL (7.0-18.0); CHLORIDE,CL 106 mmol/L (98-107); GLUCOSE RANDOM 128 mg/dL (74-106); POTASSIUM,K 4.1 mmol/L (3.5-5.1); SODIUM,NA 141 mmol/L (136-148)
--- NOTE | 2021-10-01 08:17 | PCM.CONSN ---
- General Info Date of Service: 10/01/21 Functional Status: Reports: Pain Controlled, Tolerating Diet, Ambulating, Urinating - Review of Systems General: Reports: No Symptoms HEENT: Reports: No Symptoms Pulmonary: Reports: No Symptoms Cardiovascular: Reports: No Symptoms Gastrointestinal: Reports: No Symptoms Genitourinary: Reports: No Symptoms Musculoskeletal: Reports: No Symptoms Skin: Reports: No Symptoms - Patient Data Vitals - Most Recent: Last Vital Signs Temp 36.5 C 10/01/21 05:00 Pulse 56 L 10/01/21 05:00 Resp 16 10/01/21 05:00 BP 144/62 H 10/01/21 05:00 Pulse Ox 96 10/01/21 05:00 Weight - Most Recent: 76.929 kg I&O - Last 24 Hours: Intake & Output 09/30/21 10/01/21 10/01/21 22:59 06:59 14:59 Intake Total 1206 20 Output Total 500 450 Balance 706 -430 Lab Results Last 24 Hours: Laboratory Results - last 24 hr 09/30/21 09/30/21 10/01/21 Range/Units 08:39 19:07 00:24 WBC (4.0-11.0) K/uL RBC (4.50-5.90) M/uL Hgb (13.0-17.0) g/dL Hct (38.0-50.0) % MCV (80.0-98.0) fL MCH (27.0-32.0) pg MCHC (31.0-37.0) g/dL RDW Std Deviation (28.0-62.0) fl RDW Coeff of Kristin (11.0-15.0) % Plt Count (150-400) K/uL MPV (7.40-12.00) fL Neut % (Auto) (48.0-80.0) % Lymph % (Auto) (16.0-40.0) % Ida % (Auto) (0.0-15.0) % Eos % (Auto) (0.0-7.0) % Baso % (Auto) (0.0-1.5) % Neut # (Auto) (1.4-5.7) K/uL Lymph # (Auto) (0.6-2.4) K/uL Ida # (Auto) (0.0-0.8) K/uL Eos # (Auto) (0.0-0.7) K/uL Baso # (Auto) (0.0-0.1) K/uL Nucleated RBC % /100WBC Nucleated RBCs # K/uL Sodium (136-148) mmol/L Potassium (3.5-5.1) mmol/L Chloride (98-107) mmol/L Carbon Dioxide (21.0-32.0) mmol/L BUN (7.0-18.0) mg/dL Creatinine (0.8-1.3) mg/dL Est Cr Clr Drug Dosing mL/min Estimated GFR (MDRD) ml/min Glucose (74-106) mg/dL POC Glucose 106 H 93 112 H (70-99) mg/dL Calcium (8.5-10.1) mg/dL Phosphorus (2.6-4.7) mg/dL Magnesium (1.8-2.4) mg/dL Total Bilirubin (0.2-1.0) mg/dL AST (15-37) IU/L ALT (14-63) IU/L Alkaline Phosphatase (46-116) U/L Total Protein (6.4-8.2) g/dL Albumin (3.4-5.0) g/dL Globulin (2.6-4.0) g/dL Albumin/Globulin Ratio (0.9-1.6) 10/01/21 10/01/21 10/01/21 Range/Units 05:10 05:10 06:11 WBC 5.60 (4.0-11.0) K/uL RBC 3.98 L (4.50-5.90) M/uL Hgb 11.3 L (13.0-17.0) g/dL Hct 35.0 L (38.0-50.0) % MCV 87.9 (80.0-98.0) fL MCH 28.4 (27.0-32.0) pg MCHC 32.3 (31.0-37.0) g/dL RDW Std Deviation 45.7 (28.0-62.0) fl RDW Coeff of Kristin 14 (11.0-15.0) % Plt Count 293 (150-400) K/uL MPV 9.40 (7.40-12.00) fL Neut % (Auto) 68.5 (48.0-80.0) % Lymph % (Auto) 18.4 (16.0-40.0) % Ida % (Auto) 10.0 (0.0-15.0) % Eos % (Auto) 2.7 (0.0-7.0) % Baso % (Auto) 0.4 (0.0-1.5) % Neut # (Auto) 3.8 (1.4-5.7) K/uL Lymph # (Auto) 1.0 (0.6-2.4) K/uL Ida # (Auto) 0.6 (0.0-0.8) K/uL Eos # (Auto) 0.2 (0.0-0.7) K/uL Baso # (Auto) 0.0 (0.0-0.1) K/uL Nucleated RBC % 0.0 /100WBC Nucleated RBCs # 0 K/uL Sodium 141 (136-148) mmol/L Potassium 4.1 (3.5-5.1) mmol/L Chloride 106 (98-107) mmol/L Carbon Dioxide 29.0 (21.0-32.0) mmol/L BUN 14 (7.0-18.0) mg/dL Creatinine 0.8 (0.8-1.3) mg/dL Est Cr Clr Drug Dosing 77.47 mL/min Estimated GFR (MDRD) > 60.0 ml/min Glucose 128 H (74-106) mg/dL POC Glucose 106 H (70-99) mg/dL Calcium 7.8 L (8.5-10.1) mg/dL Phosphorus 3.5 (2.6-4.7) mg/dL Magnesium 2.0 (1.8-2.4) mg/dL Total Bilirubin 0.5 (0.2-1.0) mg/dL AST 15 (15-37) IU/L ALT 19 (14-63) IU/L Alkaline Phosphatase 43 L (46-116) U/L Total Protein 5.4 L (6.4-8.2) g/dL Albumin 2.6 L (3.4-5.0) g/dL Globulin 2.8 (2.6-4.0) g/dL Albumin/Globulin Ratio 0.9 (0.9-1.6) Med Orders - Current: Current Medications Albuterol/Ipratropium (Albuterol/Ipratropium 3.0-0.5 Mg/3 Ml Neb Soln) 3 ml NEB Q6HRRT PRN PRN Reason: Shortness of Breath Enoxaparin Sodium (Enoxaparin 40 Mg/0.4 Ml Syringe) 40 mg SUBCUT Q24H [facility] Last Admin: 10/01/21 06:08 Dose: 40 mg Documented by: Hydromorphone HCl (Hydromorphone 1 Mg/Ml Syringe) 1 mg IVPUSH Q3H PRN PRN Reason: Pain Last Admin: 10/01/21 06:09 Dose: 1 mg Documented by: Sodium Chloride (Normal Saline) 1,000 mls @ 150 mls/hr IV ASDIRECTED [facility] Last Admin: 09/30/21 03:10 Dose: 150 mls/hr Documented by: Pantoprazole Sodium 40 mg/ (Sodium Chloride) 10 mls @ 300 mls/hr IV Q24H [facility] Last Admin: 10/01/21 06:08 Dose: 300 mls/hr Documented by: Dextrose/Lactated Ringer's (Dextrose 5%-Lactated Ringers) 1,000 mls @ 125 mls/hr IV Q8H [facility] Last Admin: 10/01/21 01:22 Dose: 125 mls/hr Documented by: Discontinued Medications Alum [place]/Mag [place]/Simeth XS (15 ml/ Lidocaine HCl 5 ml) 0 ml PO ONETIME ONE Stop: 09/30/21 00:36 Last Admin: 09/30/21 00:42 Dose: 15 each Documented by: Famotidine (Famotidine 20 Mg/2 Ml Sdv) 20 mg IVPUSH ONETIME ONE Stop: 09/30/21 00:36 Last Admin: 09/30/21 00:42 Dose: 20 mg Documented by: Fentanyl (Fentanyl 50 Mcg/Ml Sdv) 50 mcg IVPUSH ONETIME ONE Stop: 09/29/21 23:57 Last Admin: 09/30/21 00:05 Dose: 50 mcg Documented by: Hydromorphone HCl (Hydromorphone 1 Mg/Ml Syringe) 1 mg IVPUSH ONETIME ONE Stop: 09/30/21 01:17 Last Admin: 09/30/21 01:20 Dose: 1 mg Documented by: Hydromorphone HCl (Hydromorphone 1 Mg/Ml Syringe) 1 mg IVPUSH ONETIME ONE Stop: 09/30/21 02:49 Last Admin: 09/30/21 03:04 Dose: 1 mg Documented by: Sodium Chloride (Normal Saline) 1,000 mls @ 999 mls/hr IV .BOLUS ONE Stop: 09/30/21 00:56 Last Admin: 09/30/21 00:05 Dose: 999 mls/hr Documented by: Pantoprazole Sodium 40 mg/ (Sodium Chloride) 10 mls @ 300 mls/hr IV Q24H PATRICE Last Admin: 09/30/21 06:27 Dose: 300 mls/hr Documented by: Pantoprazole Sodium 40 mg/ (Sodium Chloride) 10 mls @ 300 mls/hr IV Q24H PATRICE Magnesium Sulfate 4 gm/ Premix 100 mls @ 50 mls/hr IV ONETIME ONE Stop: 09/30/21 13:14 Last Admin: 09/30/21 12:26 Dose: 50 mls/hr Documented by: Iopamidol (Iopamidol 755 Mg/Ml 500 Ml Multipack Bottle) 100 ml IVPUSH ONETIME ONE Stop: 09/30/21 01:02 Last Admin: 09/30/21 01:01 Dose: 100 ml Documented by: Lorazepam (Lorazepam 2 Mg/Ml Sdv) 0.5 mg IVPUSH ONETIME ONE Stop: 09/30/21 05:25 Last Admin: 09/30/21 21:39 Dose: 0.5 mg Documented by: Lorazepam (Lorazepam 2 Mg/Ml Sdv) Confirm Administered Dose 2 mg .ROUTE .STK-MED ONE Stop: 09/30/21 21:35 Last Admin: 09/30/21 21:41 Dose: Not Given Documented by: Ondansetron HCl (Ondansetron 4 Mg/2 Ml Sdv) 4 mg IVPUSH ONETIME ONE Stop: 09/30/21 00:01 Last Admin: 09/30/21 00:05 Dose: 4 mg Documented by: Pantoprazole Sodium (Pantoprazole 40 Mg Vial) Confirm Administered Dose 40 mg .ROUTE .STK-MED ONE Stop: 09/30/21 05:58 Last Admin: 09/30/21 06:24 Dose: 40 mg Documented by: - Exam General: Alert, Oriented HEENT: Pupils Equal, Pupils Reactive Lungs: Normal Respiratory Effort Cardiovascular: Regular Rate GI/Abdominal Exam: Soft, Non-Tender, No Distention, No Mass Back Exam: Normal Inspection Extremities: Normal Inspection Skin: Warm, Dry, Intact Sepsis Event Note - Evaluation Sepsis Screening Result: No Definite Risk - Focused Exam Vital Signs: Vital Signs Temp Pulse Resp BP Pulse Ox 10/01/21 05:00 36.5 C 56 L 16 144/62 H 96 10/01/21 01:00 36.3 C 58 L 16 142/68 H 95 09/30/21 21:00 36.5 C 60 17 155/67 H 96 Consult PN Assessment/Plan Procedures: Procedures ASSAY OF AMYLASE (05/13/17) ASSAY OF LIPASE (11/21/19) COMPLETE CBC W/AUTO DIFF WBC (11/21/19) COMPREHEN METABOLIC PANEL (11/21/19) CT ABD & PELV 1/> REGNS (11/21/19) CT ABD & PELV W/CONTRAST (05/13/17) EMERGENCY DEPT VISIT (11/21/19) EMERGENCY DEPT VISIT (01/06/17) EXC F/E/E/N/L MAL+MRG 1.1-2 (08/25/16) HYDRATE IV INFUSION ADD-ON (11/21/19) IMMUNIZATION ADMIN (01/06/17) INFLUENZA ASSAY W/OPTIC (11/21/19) OFFICE O/P NEW SF 15-29 MIN (08/25/16) ROUTINE VENIPUNCTURE (11/21/19) STOOL CULTR AEROBIC BACT EA (05/13/17) TDAP VACCINE 7 YRS/> IM (01/06/17) THER/PROPH/DIAG INJ IV PUSH (11/21/19) THER/PROPH/DIAG IV INF INIT (07/03/21) TISSUE EXAM BY PATHOLOGIST (01/11/18) TX/PRO/DX INJ NEW DRUG ADDON (11/21/19) TX/PRO/DX INJ SAME DRUG PRESS OPERATOR APPRENTICE (11/21/19) URINALYSIS AUTO W/O SCOPE (11/21/19) URINALYSIS AUTO W/SCOPE (05/13/17) (1) SBO (small bowel obstruction) SNOMED Code(s): 540483750 Code(s): K56.609 - UNSP INTESTNL OBST, UNSP TO PARTIAL VERSUS COMPLETE OBST Current Visit: Yes Problem List Initiated/Reviewed/Updated: Yes Plan: Patient has had return of bowel function. Would clamp NG. If tolerated after 1 h can pull and advance diet as needed. The patient has a GI physician and surgeons in [place]. He can follow-up with them as an outpatient. Will sign off for now please call with any questions or concerns
--- NOTE | 2021-10-01 11:12 | PCM.PN ---
<Shelley Jung - Last Filed: 10/01/21 11:13> - General Info Date of Service: 10/01/21 Subjective Update: The patient is a 76-year-old male, on day 2 of service, with a significant past medical history of coronary artery disease with stent placement, osteoarthritis, anxiety, and pyloric sphincter stenosis, who was admitted to the medical floor due to small bowel obstruction. Dr. Dasilva from surgery assessed the patient this morning, he had a bowel movement and is passing gas. As a result we are going to advance his diet to clear liquids and if he tolerates it, his NG tube can be removed. Also per surgery's recommendations the patient can follow-up on an outpatient basis with a min imally invasive surgeon and/or GI physician in [place]. Upon interview with the patient today, he feels his abdominal pain has significantly decreased but he is complaining of an irritated throat from the NG tube. Overall the patient feels much better than on admission to the hospital. He denies any nausea, vomiting, issues with urination, and GI complaints. He has no other health concerns at this time. - Review of Systems General: Denies: Fever, Fatigue HEENT: Reports: Sore Throat Pulmonary: Denies: Shortness of Breath, Cough Cardiovascular: Denies: Chest Pain, Palpitations Gastrointestinal: Reports: Abdominal Pain. Denies: Constipation, Diarrhea Genitourinary: Denies: Dysuria - Patient Data Vitals - Most Recent: Last Vital Signs Temp 96.4 F L 10/01/21 09:00 Pulse 51 L 10/01/21 09:00 Resp 16 10/01/21 09:00 BP 150/74 H 10/01/21 09:00 Pulse Ox 95 10/01/21 09:00 Weight - Most Recent: 76.929 kg I&O - Last 24 Hours: Intake & Output 09/30/21 10/01/21 10/01/21 22:59 06:59 14:59 Intake Total 1206 20 Output Total 500 450 Balance 706 -430 Lab Results Last 24 Hours: Laboratory Results - last 24 hr 09/30/21 09/30/21 10/01/21 Range/Units 08:39 19:07 00:24 WBC (4.0-11.0) K/uL RBC (4.50-5.90) M/uL Hgb (13.0-17.0) g/dL Hct (38.0-50.0) % MCV (80.0-98.0) fL MCH (27.0-32.0) pg MCHC (31.0-37.0) g/dL RDW Std Deviation (28.0-62.0) fl RDW Coeff of Kristin (11.0-15.0) % Plt Count (150-400) K/uL MPV (7.40-12.00) fL Neut % (Auto) (48.0-80.0) % Lymph % (Auto) (16.0-40.0) % [place] % (Auto) (0.0-15.0) % Eos % (Auto) (0.0-7.0) % Baso % (Auto) (0.0-1.5) % Neut # (Auto) (1.4-5.7) K/uL Lymph # (Auto) (0.6-2.4) K/uL [place] # (Auto) (0.0-0.8) K/uL Eos # (Auto) (0.0-0.7) K/uL Baso # (Auto) (0.0-0.1) K/uL Nucleated RBC % /100WBC Nucleated RBCs # K/uL Sodium (136-148) mmol/L Potassium (3.5-5.1) mmol/L Chloride (98-107) mmol/L Carbon Dioxide (21.0-32.0) mmol/L BUN (7.0-18.0) mg/dL Creatinine (0.8-1.3) mg/dL Est Cr Clr Drug Dosing mL/min Estimated GFR (MDRD) ml/min Glucose (74-106) mg/dL POC Glucose 106 H 93 112 H (70-99) mg/dL Calcium (8.5-10.1) mg/dL Phosphorus (2.6-4.7) mg/dL Magnesium (1.8-2.4) mg/dL Total Bilirubin (0.2-1.0) mg/dL AST (15-37) IU/L ALT (14-63) IU/L Alkaline Phosphatase (46-116) U/L Total Protein (6.4-8.2) g/dL Albumin (3.4-5.0) g/dL Globulin (2.6-4.0) g/dL Albumin/Globulin Ratio (0.9-1.6) 10/01/21 10/01/21 10/01/21 Range/Units 05:10 05:10 06:11 WBC 5.60 (4.0-11.0) K/uL RBC 3.98 L (4.50-5.90) M/uL Hgb 11.3 L (13.0-17.0) g/dL Hct 35.0 L (38.0-50.0) % MCV 87.9 (80.0-98.0) fL MCH 28.4 (27.0-32.0) pg MCHC 32.3 (31.0-37.0) g/dL RDW Std Deviation 45.7 (28.0-62.0) fl RDW Coeff of Kristin 14 (11.0-15.0) % Plt Count 293 (150-400) K/uL MPV 9.40 (7.40-12.00) fL Neut % (Auto) 68.5 (48.0-80.0) % Lymph % (Auto) 18.4 (16.0-40.0) % [place] % (Auto) 10.0 (0.0-15.0) % Eos % (Auto) 2.7 (0.0-7.0) % Baso % (Auto) 0.4 (0.0-1.5) % Neut # (Auto) 3.8 (1.4-5.7) K/uL Lymph # (Auto) 1.0 (0.6-2.4) K/uL [place] # (Auto) 0.6 (0.0-0.8) K/uL Eos # (Auto) 0.2 (0.0-0.7) K/uL Baso # (Auto) 0.0 (0.0-0.1) K/uL Nucleated RBC % 0.0 /100WBC Nucleated RBCs # 0 K/uL Sodium 141 (136-148) mmol/L Potassium 4.1 (3.5-5.1) mmol/L Chloride 106 (98-107) mmol/L Carbon Dioxide 29.0 (21.0-32.0) mmol/L BUN 14 (7.0-18.0) mg/dL Creatinine 0.8 (0.8-1.3) mg/dL Est Cr Clr Drug Dosing 77.47 mL/min Estimated GFR (MDRD) > 60.0 ml/min Glucose 128 H (74-106) mg/dL POC Glucose 106 H (70-99) mg/dL Calcium 7.8 L (8.5-10.1) mg/dL Phosphorus 3.5 (2.6-4.7) mg/dL Magnesium 2.0 (1.8-2.4) mg/dL Total Bilirubin 0.5 (0.2-1.0) mg/dL AST 15 (15-37) IU/L ALT 19 (14-63) IU/L Alkaline Phosphatase 43 L (46-116) U/L Total Protein 5.4 L (6.4-8.2) g/dL Albumin 2.6 L (3.4-5.0) g/dL Globulin 2.8 (2.6-4.0) g/dL Albumin/Globulin Ratio 0.9 (0.9-1.6) Med Orders - Current: Current Medications Albuterol/Ipratropium (Albuterol/Ipratropium 3.0-0.5 Mg/3 Ml Neb Soln) 3 ml NEB Q6HRRT PRN PRN Reason: Shortness of Breath Enoxaparin Sodium (Enoxaparin 40 Mg/0.4 Ml Syringe) 40 mg SUBCUT Q24H [facility] Last Admin: 10/01/21 06:08 Dose: 40 mg Documented by: Hydromorphone HCl (Hydromorphone 1 Mg/Ml Syringe) 1 mg IVPUSH Q3H PRN PRN Reason: Pain Last Admin: 10/01/21 10:02 Dose: 1 mg Documented by: Sodium Chloride (Normal Saline) 1,000 mls @ 150 mls/hr IV ASDIRECTED [facility] Last Admin: 09/30/21 03:10 Dose: 150 mls/hr Documented by: Pantoprazole Sodium 40 mg/ (Sodium Chloride) 10 mls @ 300 mls/hr IV Q24H [facility] Last Admin: 10/01/21 06:08 Dose: 300 mls/hr Documented by: Dextrose/Lactated Ringer's (Dextrose 5%-Lactated Ringers) 1,000 mls @ 125 mls/hr IV Q8H [facility] Last Admin: 10/01/21 09:57 Dose: 125 mls/hr Documented by: Discontinued Medications Alum Barton/Mag Barton/Simeth XS (15 ml/ Lidocaine HCl 5 ml) 0 ml PO ONETIME ONE Stop: 09/30/21 00:36 Last Admin: 09/30/21 00:42 Dose: 15 each Documented by: Famotidine (Famotidine 20 Mg/2 Ml Sdv) 20 mg IVPUSH ONETIME ONE Stop: 09/30/21 00:36 Last Admin: 09/30/21 00:42 Dose: 20 mg Documented by: Fentanyl (Fentanyl 50 Mcg/Ml Sdv) 50 mcg IVPUSH ONETIME ONE Stop: 09/29/21 23:57 Last Admin: 09/30/21 00:05 Dose: 50 mcg Documented by: Hydromorphone HCl (Hydromorphone 1 Mg/Ml Syringe) 1 mg IVPUSH ONETIME ONE Stop: 09/30/21 01:17 Last Admin: 09/30/21 01:20 Dose: 1 mg Documented by: Hydromorphone HCl (Hydromorphone 1 Mg/Ml Syringe) 1 mg IVPUSH ONETIME ONE Stop: 09/30/21 02:49 Last Admin: 09/30/21 03:04 Dose: 1 mg Documented by: Sodium Chloride (Normal Saline) 1,000 mls @ 999 mls/hr IV .BOLUS ONE Stop: 09/30/21 00:56 Last Admin: 09/30/21 00:05 Dose: 999 mls/hr Documented by: Pantoprazole Sodium 40 mg/ (Sodium Chloride) 10 mls @ 300 mls/hr IV Q24H [facility] Last Admin: 09/30/21 06:27 Dose: 300 mls/hr Documented by: Pantoprazole Sodium 40 mg/ (Sodium Chloride) 10 mls @ 300 mls/hr IV Q24H [facility] Magnesium Sulfate 4 gm/ Premix 100 mls @ 50 mls/hr IV ONETIME ONE Stop: 09/30/21 13:14 Last Admin: 09/30/21 12:26 Dose: 50 mls/hr Documented by: Iopamidol (Iopamidol 755 Mg/Ml 500 Ml Multipack Bottle) 100 ml IVPUSH ONETIME ONE Stop: 09/30/21 01:02 Last Admin: 09/30/21 01:01 Dose: 100 ml Documented by: Lorazepam (Lorazepam 2 Mg/Ml Sdv) 0.5 mg IVPUSH ONETIME ONE Stop: 09/30/21 05:25 Last Admin: 09/30/21 21:39 Dose: 0.5 mg Documented by: Lorazepam (Lorazepam 2 Mg/Ml Sdv) Confirm Administered Dose 2 mg .ROUTE .STK-MED ONE Stop: 09/30/21 21:35 Last Admin: 09/30/21 21:41 Dose: Not Given Documented by: Ondansetron HCl (Ondansetron 4 Mg/2 Ml Sdv) 4 mg IVPUSH ONETIME ONE Stop: 09/30/21 00:01 Last Admin: 09/30/21 00:05 Dose: 4 mg Documented by: Pantoprazole Sodium (Pantoprazole 40 Mg Vial) Confirm Administered Dose 40 mg .ROUTE .STK-MED ONE Stop: 09/30/21 05:58 Last Admin: 09/30/21 06:24 Dose: 40 mg Documented by: - Exam General: Alert, Oriented, Cooperative HEENT: Other (Dry mucous membranes) Lungs: Clear to Auscultation, Normal Respiratory Effort Cardiovascular: Regular Rate, Regular Rhythm GI/Abdominal Exam: Normal Bowel Sounds, Tender Extremities: No Pedal Edema - Patient Data Lab Results Last 24 hrs: Laboratory Results - last 24 hr 09/30/21 09/30/21 10/01/21 Range/Units 08:39 19:07 00:24 WBC (4.0-11.0) K/uL RBC (4.50-5.90) M/uL Hgb (13.0-17.0) g/dL Hct (38.0-50.0) % MCV (80.0-98.0) fL MCH (27.0-32.0) pg MCHC (31.0-37.0) g/dL RDW Std Deviation (28.0-62.0) fl RDW Coeff of Kristin (11.0-15.0) % Plt Count (150-400) K/uL MPV (7.40-12.00) fL Neut % (Auto) (48.0-80.0) % Lymph % (Auto) (16.0-40.0) % [place] % (Auto) (0.0-15.0) % Eos % (Auto) (0.0-7.0) % Baso % (Auto) (0.0-1.5) % Neut # (Auto) (1.4-5.7) K/uL Lymph # (Auto) (0.6-2.4) K/uL [place] # (Auto) (0.0-0.8) K/uL Eos # (Auto) (0.0-0.7) K/uL Baso # (Auto) (0.0-0.1) K/uL Nucleated RBC % /100WBC Nucleated RBCs # K/uL Sodium (136-148) mmol/L Potassium (3.5-5.1) mmol/L Chloride (98-107) mmol/L Carbon Dioxide (21.0-32.0) mmol/L BUN (7.0-18.0) mg/dL Creatinine (0.8-1.3) mg/dL Est Cr Clr Drug Dosing mL/min Estimated GFR (MDRD) ml/min Glucose (74-106) mg/dL POC Glucose 106 H 93 112 H (70-99) mg/dL Calcium (8.5-10.1) mg/dL Phosphorus (2.6-4.7) mg/dL Magnesium (1.8-2.4) mg/dL Total Bilirubin (0.2-1.0) mg/dL AST (15-37) IU/L ALT (14-63) IU/L Alkaline Phosphatase (46-116) U/L Total Protein (6.4-8.2) g/dL Albumin (3.4-5.0) g/dL Globulin (2.6-4.0) g/dL Albumin/Globulin Ratio (0.9-1.6) 10/01/21 10/01/21 10/01/21 Range/Units 05:10 05:10 06:11 WBC 5.60 (4.0-11.0) K/uL RBC 3.98 L (4.50-5.90) M/uL Hgb 11.3 L (13.0-17.0) g/dL Hct 35.0 L (38.0-50.0) % MCV 87.9 (80.0-98.0) fL MCH 28.4 (27.0-32.0) pg MCHC 32.3 (31.0-37.0) g/dL RDW Std Deviation 45.7 (28.0-62.0) fl RDW Coeff of Kristin 14 (11.0-15.0) % Plt Count 293 (150-400) K/uL MPV 9.40 (7.40-12.00) fL Neut % (Auto) 68.5 (48.0-80.0) % Lymph % (Auto) 18.4 (16.0-40.0) % [place] % (Auto) 10.0 (0.0-15.0) % Eos % (Auto) 2.7 (0.0-7.0) % Baso % (Auto) 0.4 (0.0-1.5) % Neut # (Auto) 3.8 (1.4-5.7) K/uL Lymph # (Auto) 1.0 (0.6-2.4) K/uL [place] # (Auto) 0.6 (0.0-0.8) K/uL Eos # (Auto) 0.2 (0.0-0.7) K/uL Baso # (Auto) 0.0 (0.0-0.1) K/uL Nucleated RBC % 0.0 /100WBC Nucleated RBCs # 0 K/uL Sodium 141 (136-148) mmol/L Potassium 4.1 (3.5-5.1) mmol/L Chloride 106 (98-107) mmol/L Carbon Dioxide 29.0 (21.0-32.0) mmol/L BUN 14 (7.0-18.0) mg/dL Creatinine 0.8 (0.8-1.3) mg/dL Est Cr Clr Drug Dosing 77.47 mL/min Estimated GFR (MDRD) > 60.0 ml/min Glucose 128 H (74-106) mg/dL POC Glucose 106 H (70-99) mg/dL Calcium 7.8 L (8.5-10.1) mg/dL Phosphorus 3.5 (2.6-4.7) mg/dL Magnesium 2.0 (1.8-2.4) mg/dL Total Bilirubin 0.5 (0.2-1.0) mg/dL AST 15 (15-37) IU/L ALT 19 (14-63) IU/L Alkaline Phosphatase 43 L (46-116) U/L Total Protein 5.4 L (6.4-8.2) g/dL Albumin 2.6 L (3.4-5.0) g/dL Globulin 2.8 (2.6-4.0) g/dL Albumin/Globulin Ratio 0.9 (0.9-1.6) Result Diagrams: 10/01/21 05:10 10/01/21 05:10 Sepsis Event Note - Evaluation Sepsis Screening Result: No Definite Risk - Focused Exam Vital Signs: Vital Signs Temp Pulse Resp BP Pulse Ox 10/01/21 09:00 96.4 F L 51 L 16 150/74 H 95 10/01/21 05:00 97.7 F 56 L 16 144/62 H 96 10/01/21 01:00 97.3 F 58 L 16 142/68 H 95 - Problem List & Annotations (1) CAD (coronary artery disease) SNOMED Code(s): 95388081 Code(s): I25.10 - ATHSCL HEART DISEASE OF [place] CORONARY ARTERY W/O ANG PCTRS Status: Acute Current Visit: Yes (2) SBO (small bowel obstruction) SNOMED Code(s): 158279811 Code(s): K56.609 - UNSP INTESTNL OBST, UNSP TO PARTIAL VERSUS COMPLETE OBST Status: Acute Current Visit: Yes (3) Vomiting SNOMED Code(s): 153533890 Code(s): R11.10 - VOMITING, UNSPECIFIED Status: Acute Current Visit: No Qualifiers: Vomiting type: unspecified Vomiting Intractability: non-intractable Nausea presence: with nausea Qualified Code(s): R11.2 - Nausea with vomiting, unspecified - Problem List Review Problem List Initiated/Reviewed/Updated: Yes - My Orders Last 24 Hours: My Active Orders 09/30/21 10:37 Code Status [Resuscitation Status] Routine 10/02/21 05:11 CBC WITH AUTO DIFF [HEME] AM CMP [COMPREHENSIVE METABOLIC PN,CMP] [CHEM] AM - Assessment Assessment:: 1. Small bowel obstruction -The patient has been transitioned to a clear liquid diet as per surgery peter mmendations, and if he tolerates it well his NG tube can be removed. -Dr. Dasilva from surgery recommends follow-up on outpatient basis with a minimally invasive surgeon and/or GI physician. -For pain we will continue with Dilaudid 1 mg IV push every 3 hours -We will continue to monitor the patient for clinical improvements 2. Coronary artery disease -The patient is on telemetry and we will continue to monitor his heart's electrical function <Tessie Zuniga - Last Filed: 10/01/21 20:56> - General Info Subjective Update: I have seen and evaluated the patient and agree with the residents note unless specified in my note - Patient Data Vitals - Most Recent: Last Vital Signs Temp 36.2 C 10/01/21 17:00 Pulse 56 L 10/01/21 17:00 Resp 16 10/01/21 17:00 BP 157/70 H 10/01/21 17:00 Pulse Ox 93 L 10/01/21 17:00 I&O - Last 24 Hours: Intake & Output 10/01/21 10/01/21 10/01/21 06:59 14:59 22:59 Intake Total 20 2700 Output Total 450 0 Balance -430 2700 Lab Results Last 24 Hours: Laboratory Results - last 24 hr 10/01/21 10/01/21 10/01/21 Range/Units 00:24 05:10 05:10 WBC 5.60 (4.0-11.0) K/uL RBC 3.98 L (4.50-5.90) M/uL Hgb 11.3 L (13.0-17.0) g/dL Hct 35.0 L (38.0-50.0) % MCV 87.9 (80.0-98.0) fL MCH 28.4 (27.0-32.0) pg MCHC 32.3 (31.0-37.0) g/dL RDW Std Deviation 45.7 (28.0-62.0) fl RDW Coeff of Kristin 14 (11.0-15.0) % Plt Count 293 (150-400) K/uL MPV 9.40 (7.40-12.00) fL Neut % (Auto) 68.5 (48.0-80.0) % Lymph % (Auto) 18.4 (16.0-40.0) % [place] % (Auto) 10.0 (0.0-15.0) % Eos % (Auto) 2.7 (0.0-7.0) % Baso % (Auto) 0.4 (0.0-1.5) % Neut # (Auto) 3.8 (1.4-5.7) K/uL Lymph # (Auto) 1.0 (0.6-2.4) K/uL [place] # (Auto) 0.6 (0.0-0.8) K/uL Eos # (Auto) 0.2 (0.0-0.7) K/uL Baso # (Auto) 0.0 (0.0-0.1) K/uL Nucleated RBC % 0.0 /100WBC Nucleated RBCs # 0 K/uL Sodium 141 (136-148) mmol/L Potassium 4.1 (3.5-5.1) mmol/L Chloride 106 (98-107) mmol/L Carbon Dioxide 29.0 (21.0-32.0) mmol/L BUN 14 (7.0-18.0) mg/dL Creatinine 0.8 (0.8-1.3) mg/dL Est Cr Clr Drug Dosing 77.47 mL/min Estimated GFR (MDRD) > 60.0 ml/min Glucose 128 H (74-106) mg/dL POC Glucose 112 H (70-99) mg/dL Calcium 7.8 L (8.5-10.1) mg/dL Phosphorus 3.5 (2.6-4.7) mg/dL Magnesium 2.0 (1.8-2.4) mg/dL Total Bilirubin 0.5 (0.2-1.0) mg/dL AST 15 (15-37) IU/L ALT 19 (14-63) IU/L Alkaline Phosphatase 43 L (46-116) U/L Total Protein 5.4 L (6.4-8.2) g/dL Albumin 2.6 L (3.4-5.0) g/dL Globulin 2.8 (2.6-4.0) g/dL Albumin/Globulin Ratio 0.9 (0.9-1.6) 10/01/21 Range/Units 06:11 WBC (4.0-11.0) K/uL RBC (4.50-5.90) M/uL Hgb (13.0-17.0) g/dL Hct (38.0-50.0) % MCV (80.0-98.0) fL MCH (27.0-32.0) pg MCHC (31.0-37.0) g/dL RDW Std Deviation (28.0-62.0) fl RDW Coeff of Kristin (11.0-15.0) % Plt Count (150-400) K/uL MPV (7.40-12.00) fL Neut % (Auto) (48.0-80.0) % Lymph % (Auto) (16.0-40.0) % [place] % (Auto) (0.0-15.0) % Eos % (Auto) (0.0-7.0) % Baso % (Auto) (0.0-1.5) % Neut # (Auto) (1.4-5.7) K/uL Lymph # (Auto) (0.6-2.4) K/uL [place] # (Auto) (0.0-0.8) K/uL Eos # (Auto) (0.0-0.7) K/uL Baso # (Auto) (0.0-0.1) K/uL Nucleated RBC % /100WBC Nucleated RBCs # K/uL Sodium (136-148) mmol/L Potassium (3.5-5.1) mmol/L Chloride (98-107) mmol/L Carbon Dioxide (21.0-32.0) mmol/L BUN (7.0-18.0) mg/dL Creatinine (0.8-1.3) mg/dL Est Cr Clr Drug Dosing mL/min Estimated GFR (MDRD) ml/min Glucose (74-106) mg/dL POC Glucose 106 H (70-99) mg/dL Calcium (8.5-10.1) mg/dL Phosphorus (2.6-4.7) mg/dL Magnesium (1.8-2.4) mg/dL Total Bilirubin (0.2-1.0) mg/dL AST (15-37) IU/L ALT (14-63) IU/L Alkaline Phosphatase (46-116) U/L Total Protein (6.4-8.2) g/dL Albumin (3.4-5.0) g/dL Globulin (2.6-4.0) g/dL Albumin/Globulin Ratio (0.9-1.6) Med Orders - Current: Current Medications Albuterol/Ipratropium (Albuterol/Ipratropium 3.0-0.5 Mg/3 Ml Neb Soln) 3 ml NEB Q6HRRT PRN PRN Reason: Shortness of Breath Enoxaparin Sodium (Enoxaparin 40 Mg/0.4 Ml Syringe) 40 mg SUBCUT Q24H [facility] Last Admin: 10/01/21 06:08 Dose: 40 mg Documented by: Hydromorphone HCl (Hydromorphone 1 Mg/Ml Syringe) 1 mg IVPUSH Q3H PRN PRN Reason: Pain Last Admin: 10/01/21 10:02 Dose: 1 mg Documented by: Pantoprazole Sodium 40 mg/ (Sodium Chloride) 10 mls @ 300 mls/hr IV Q24H [facility] Last Admin: 10/01/21 06:08 Dose: 300 mls/hr Documented by: Discontinued Medications Alum Barton/Mag Barton/Simeth XS (15 ml/ Lidocaine HCl 5 ml) 0 ml PO ONETIME ONE Stop: 09/30/21 00:36 Last Admin: 09/30/21 00:42 Dose: 15 each Documented by: Famotidine (Famotidine 20 Mg/2 Ml Sdv) 20 mg IVPUSH ONETIME ONE Stop: 09/30/21 00:36 Last Admin: 09/30/21 00:42 Dose: 20 mg Documented by: Fentanyl (Fentanyl 50 Mcg/Ml Sdv) 50 mcg IVPUSH ONETIME ONE Stop: 09/29/21 23:57 Last Admin: 09/30/21 00:05 Dose: 50 mcg Documented by: Hydromorphone HCl (Hydromorphone 1 Mg/Ml Syringe) 1 mg IVPUSH ONETIME ONE Stop: 09/30/21 01:17 Last Admin: 09/30/21 01:20 Dose: 1 mg Documented by: Hydromorphone HCl (Hydromorphone 1 Mg/Ml Syringe) 1 mg IVPUSH ONETIME ONE Stop: 09/30/21 02:49 Last Admin: 09/30/21 03:04 Dose: 1 mg Documented by: Sodium Chloride (Normal Saline) 1,000 mls @ 999 mls/hr IV .BOLUS ONE Stop: 09/30/21 00:56 Last Admin: 09/30/21 00:05 Dose: 999 mls/hr Documented by: Sodium Chloride (Normal Saline) 1,000 mls @ 150 mls/hr IV ASDIRECTED [facility] Last Admin: 09/30/21 03:10 Dose: 150 mls/hr Documented by: Pantoprazole Sodium 40 mg/ (Sodium Chloride) 10 mls @ 300 mls/hr IV Q24H [facility] Last Admin: 09/30/21 06:27 Dose: 300 mls/hr Documented by: Pantoprazole Sodium 40 mg/ (Sodium Chloride) 10 mls @ 300 mls/hr IV Q24H [facility] Dextrose/Lactated Ringer's (Dextrose 5%-Lactated Ringers) 1,000 mls @ 125 ml s/hr IV Q8H [facility] Last Admin: 10/01/21 09:57 Dose: 125 mls/hr Documented by: Magnesium Sulfate 4 gm/ Premix 100 mls @ 50 mls/hr IV ONETIME ONE Stop: 09/30/21 13:14 Last Admin: 09/30/21 12:26 Dose: 50 mls/hr Documented by: Iopamidol (Iopamidol 755 Mg/Ml 500 Ml Multipack Bottle) 100 ml IVPUSH ONETIME ONE Stop: 09/30/21 01:02 Last Admin: 09/30/21 01:01 Dose: 100 ml Documented by: Lorazepam (Lorazepam 2 Mg/Ml Sdv) 0.5 mg IVPUSH ONETIME ONE Stop: 09/30/21 05:25 Last Admin: 09/30/21 21:39 Dose: 0.5 mg Documented by: Lorazepam (Lorazepam 2 Mg/Ml Sdv) Confirm Administered Dose 2 mg .ROUTE .STK-MED ONE Stop: 09/30/21 21:35 Last Admin: 09/30/21 21:41 Dose: Not Given Documented by: Ondansetron HCl (Ondansetron 4 Mg/2 Ml Sdv) 4 mg IVPUSH ONETIME ONE Stop: 09/30/21 00:01 Last Admin: 09/30/21 00:05 Dose: 4 mg Documented by: Pantoprazole Sodium (Pantoprazole 40 Mg Vial) Confirm Administered Dose 40 mg .ROUTE .STK-MED ONE Stop: 09/30/21 05:58 Last Admin: 09/30/21 06:24 Dose: 40 mg Documented by: - Patient Data Lab Results Last 24 hrs: Laboratory Results - last 24 hr 10/01/21 10/01/21 10/01/21 Range/Units 00:24 05:10 05:10 WBC 5.60 (4.0-11.0) K/uL RBC 3.98 L (4.50-5.90) M/uL Hgb 11.3 L (13.0-17.0) g/dL Hct 35.0 L (38.0-50.0) % MCV 87.9 (80.0-98.0) fL MCH 28.4 (27.0-32.0) pg MCHC 32.3 (31.0-37.0) g/dL RDW Std Deviation 45.7 (28.0-62.0) fl RDW Coeff of Kristin 14 (11.0-15.0) % Plt Count 293 (150-400) K/uL MPV 9.40 (7.40-12.00) fL Neut % (Auto) 68.5 (48.0-80.0) % Lymph % (Auto) 18.4 (16.0-40.0) % [place] % (Auto) 10.0 (0.0-15.0) % Eos % (Auto) 2.7 (0.0-7.0) % Baso % (Auto) 0.4 (0.0-1.5) % Neut # (Auto) 3.8 (1.4-5.7) K/uL Lymph # (Auto) 1.0 (0.6-2.4) K/uL [place] # (Auto) 0.6 (0.0-0.8) K/uL Eos # (Auto) 0.2 (0.0-0.7) K/uL Baso # (Auto) 0.0 (0.0-0.1) K/uL Nucleated RBC % 0.0 /100WBC Nucleated RBCs # 0 K/uL Sodium 141 (136-148) mmol/L Potassium 4.1 (3.5-5.1) mmol/L Chloride 106 (98-107) mmol/L Carbon Dioxide 29.0 (21.0-32.0) mmol/L BUN 14 (7.0-18.0) mg/dL Creatinine 0.8 (0.8-1.3) mg/dL Est Cr Clr Drug Dosing 77.47 mL/min Estimated GFR (MDRD) > 60.0 ml/min Glucose 128 H (74-106) mg/dL POC Glucose 112 H (70-99) mg/dL Calcium 7.8 L (8.5-10.1) mg/dL Phosphorus 3.5 (2.6-4.7) mg/dL Magnesium 2.0 (1.8-2.4) mg/dL Total Bilirubin 0.5 (0.2-1.0) mg/dL AST 15 (15-37) IU/L ALT 19 (14-63) IU/L Alkaline Phosphatase 43 L (46-116) U/L Total Protein 5.4 L (6.4-8.2) g/dL Albumin 2.6 L (3.4-5.0) g/dL Globulin 2.8 (2.6-4.0) g/dL Albumin/Globulin Ratio 0.9 (0.9-1.6) 10/01/21 Range/Units 06:11 WBC (4.0-11.0) K/uL RBC (4.50-5.90) M/uL Hgb (13.0-17.0) g/dL Hct (38.0-50.0) % MCV (80.0-98.0) fL MCH (27.0-32.0) pg MCHC (31.0-37.0) g/dL RDW Std Deviation (28.0-62.0) fl RDW Coeff of Kristin (11.0-15.0) % Plt Count (150-400) K/uL MPV (7.40-12.00) fL Neut % (Auto) (48.0-80.0) % Lymph % (Auto) (16.0-40.0) % [place] % (Auto) (0.0-15.0) % Eos % (Auto) (0.0-7.0) % Baso % (Auto) (0.0-1.5) % Neut # (Auto) (1.4-5.7) K/uL Lymph # (Auto) (0.6-2.4) K/uL [place] # (Auto) (0.0-0.8) K/uL Eos # (Auto) (0.0-0.7) K/uL Baso # (Auto) (0.0-0.1) K/uL Nucleated RBC % /100WBC Nucleated RBCs # K/uL Sodium (136-148) mmol/L Potassium (3.5-5.1) mmol/L Chloride (98-107) mmol/L Carbon Dioxide (21.0-32.0) mmol/L BUN (7.0-18.0) mg/dL Creatinine (0.8-1.3) mg/dL Est Cr Clr Drug Dosing mL/min Estimated GFR (MDRD) ml/min Glucose (74-106) mg/dL POC Glucose 106 H (70-99) mg/dL Calcium (8.5-10.1) mg/dL Phosphorus (2.6-4.7) mg/dL Magnesium (1.8-2.4) mg/dL Total Bilirubin (0.2-1.0) mg/dL AST (15-37) IU/L ALT (14-63) IU/L Alkaline Phosphatase (46-116) U/L Total Protein (6.4-8.2) g/dL Albumin (3.4-5.0) g/dL Globulin (2.6-4.0) g/dL Albumin/Globulin Ratio (0.9-1.6) Result Diagrams: 10/01/21 05:10 10/01/21 05:10 Sepsis Event Note - Focused Exam Vital Signs: Vital Signs Temp Pulse Resp BP Pulse Ox 10/01/21 17:00 36.2 C 56 L 16 157/70 H 93 L 10/01/21 13:00 35.6 C L 58 L 16 166/85 H 95 10/01/21 09:00 35.8 C L 51 L 16 150/74 H 95 - My Orders Last 24 Hours: My Active Orders 10/01/21 06:00 Pantoprazole [ProTONIX IV] 40 mg Sodium Chloride 0.9% [Normal Saline] 10 ml IV Q24H 10/01/21 Lunch Soft Diet [DIET]
[2021-10-01] MEDS ORDERED: Acetaminophen 325 MG Tab PO PRN (21:33)
[2021-10-01] MEDS ORDERED: LORazepam 1 MG Tab PO ONE (21:34)
[2021-10-02] MEDS: Enoxaparin 40 MG/0.4 ML Syringe SUBCUT SCH (06:06)
[2021-10-02] MEDS: Pantoprazole 40 MG in Sodium Chloride 0.9% 10 ML IV SCH (06:07)
[2021-10-02] MEDS: HYDROmorphone 1 MG/ML Syringe IVPUSH PRN (06:16)
[2021-10-02 07:33] LABS: BLOOD UREA NITROGEN,BUN 11 mg/dL (7.0-18.0); CARBON DIOXIDE,CO2 26.1 mmol/L (21.0-32.0); CHLORIDE,CL 107 mmol/L (98-107); GLUCOSE RANDOM 99 mg/dL (74-106); POTASSIUM,K 3.7 mmol/L (3.5-5.1); SODIUM,NA 141 mmol/L (136-148)
--- NOTE | 2021-10-02 11:39 | PCM.PN ---
- General Info Date of Service: 10/02/21 Subjective Update: The patient is a 76-year-old male, on day 3 of service, with a significant past medical history of coronary artery disease with stent placement, osteoarthritis, anxiety, and pyloric sphincter stenosis, who was admitted to the medical floor due to small bowel obstruction. Dr. Dasilva from surgery assessed the patient throughout his hospital stay and felt surgery was not required. Instead we treated this patient with conservative measures including a NG tube, n.p.o. and advancing diet as tolerated, and analgesic medication. Throughout his course the patient started to improve and his diet was advanced from clear liquids to soft diet which he tolerated well. He was passing gas and had large bowel movements with conservative measures. Today the patient has no pain and feels well. He is to follow-up with his GI specialist in [place] in 4 weeks time. He was also advised to follow-up with his PCP and to be compliant with his medication. He has been educated on returning to the hospital if he has nausea, vomiting, abdominal pain, or any signs of bleeding. - Review of Systems General: Denies: Fever, Fatigue HEENT: Denies: Headaches Pulmonary: Denies: Shortness of Breath, Cough Cardiovascular: Denies: Chest Pain Gastrointestinal: Denies: Abdominal Pain, Constipation, Diarrhea Genitourinary: Denies: Dysuria - Patient Data Vitals - Most Recent: Last Vital Signs Temp 96.1 F L 10/02/21 08:00 Pulse 48 L 10/02/21 08:00 Resp 22 H 10/02/21 08:00 BP 129/61 10/02/21 08:00 Pulse Ox 94 L 10/02/21 08:00 Weight - Most Recent: 169 lb 9.6 oz I&O - Last 24 Hours: Intake & Output 10/01/21 10/02/21 10/02/21 22:59 06:59 14:59 Intake Total 2700 1000 Output Total 0 850 Balance 2700 150 Lab Results Last 24 Hours: Laboratory Results - last 24 hr 10/02/21 10/02/21 Range/Units 05:27 05:27 WBC 4.98 (4.0-11.0) K/uL RBC 3.74 L (4.50-5.90) M/uL Hgb 10.8 L (13.0-17.0) g/dL Hct 33.8 L (38.0-50.0) % MCV 90.4 (80.0-98.0) fL MCH 28.9 (27.0-32.0) pg MCHC 32.0 (31.0-37.0) g/dL RDW Std Deviation 43.8 (28.0-62.0) fl RDW Coeff of Kristin 14 (11.0-15.0) % Plt Count 263 (150-400) K/uL MPV 9.50 (7.40-12.00) fL Neut % (Auto) 58.2 (48.0-80.0) % Lymph % (Auto) 21.7 (16.0-40.0) % [place] % (Auto) 14.7 (0.0-15.0) % Eos % (Auto) 5.0 (0.0-7.0) % Baso % (Auto) 0.4 (0.0-1.5) % Neut # (Auto) 2.9 (1.4-5.7) K/uL Lymph # (Auto) 1.1 (0.6-2.4) K/uL [place] # (Auto) 0.7 (0.0-0.8) K/uL Eos # (Auto) 0.3 (0.0-0.7) K/uL Baso # (Auto) 0.0 (0.0-0.1) K/uL Sodium 141 (136-148) mmol/L Potassium 3.7 (3.5-5.1) mmol/L Chloride 107 (98-107) mmol/L Carbon Dioxide 26.1 (21.0-32.0) mmol/L BUN 11 (7.0-18.0) mg/dL Creatinine 0.7 L (0.8-1.3) mg/dL Est Cr Clr Drug Dosing 88.54 mL/min Estimated GFR (MDRD) > 60.0 ml/min Glucose 99 (74-106) mg/dL Calcium 7.9 L (8.5-10.1) mg/dL Total Bilirubin 0.4 (0.2-1.0) mg/dL AST 25 (15-37) IU/L ALT 15 (14-63) IU/L Alkaline Phosphatase 43 L (46-116) U/L Total Protein 5.5 L (6.4-8.2) g/dL Albumin 2.4 L (3.4-5.0) g/dL Globulin 3.1 (2.6-4.0) g/dL Albumin/Globulin Ratio 0.8 L (0.9-1.6) Med Orders - Current: Current Medications Acetaminophen (Acetaminophen 325 Mg Tab) 650 mg PO Q6H PRN PRN Reason: Pain Albuterol/Ipratropium (Albuterol/Ipratropium 3.0-0.5 Mg/3 Ml Neb Soln) 3 ml NEB Q6HRRT PRN PRN Reason: Shortness of Breath Enoxaparin Sodium (Enoxaparin 40 Mg/0.4 Ml Syringe) 40 mg SUBCUT Q24H [facility] Last Admin: 10/02/21 06:06 Dose: 40 mg Documented by: Hydromorphone HCl (Hydromorphone 1 Mg/Ml Syringe) 1 mg IVPUSH Q3H PRN PRN Reason: Pain Last Admin: 10/02/21 06:16 Dose: 1 mg Documented by: Pantoprazole Sodium 40 mg/ (Sodium Chloride) 10 mls @ 300 mls/hr IV Q24H [facility] Last Admin: 10/02/21 06:07 Dose: 300 mls/hr Documented by: Discontinued Medications Alum [place]/Mag [place]/Simeth XS (15 ml/ Lidocaine HCl 5 ml) 0 ml PO ONETIME ONE Stop: 09/30/21 00:36 Last Admin: 09/30/21 00:42 Dose: 15 each Documented by: Famotidine (Famotidine 20 Mg/2 Ml Sdv) 20 mg IVPUSH ONETIME ONE Stop: 09/30/21 00:36 Last Admin: 09/30/21 00:42 Dose: 20 mg Documented by: Fentanyl (Fentanyl 50 Mcg/Ml Sdv) 50 mcg IVPUSH ONETIME ONE Stop: 09/29/21 23:57 Last Admin: 09/30/21 00:05 Dose: 50 mcg Documented by: Hydromorphone HCl (Hydromorphone 1 Mg/Ml Syringe) 1 mg IVPUSH ONETIME ONE Stop: 09/30/21 01:17 Last Admin: 09/30/21 01:20 Dose: 1 mg Documented by: Hydromorphone HCl (Hydromorphone 1 Mg/Ml Syringe) 1 mg IVPUSH ONETIME ONE Stop: 09/30/21 02:49 Last Admin: 09/30/21 03:04 Dose: 1 mg Documented by: Sodium Chloride (Normal Saline) 1,000 mls @ 999 mls/hr IV .BOLUS ONE Stop: 09/30/21 00:56 Last Admin: 09/30/21 00:05 Dose: 999 mls/hr Documented by: Sodium Chloride (Normal Saline) 1,000 mls @ 150 mls/hr IV ASDIRECTED [facility] Last Admin: 09/30/21 03:10 Dose: 150 mls/hr Documented by: Pantoprazole Sodium 40 mg/ (Sodium Chloride) 10 mls @ 300 mls/hr IV Q24H [facility] Last Admin: 09/30/21 06:27 Dose: 300 mls/hr Documented by: Pantoprazole Sodium 40 mg/ (Sodium Chloride) 10 mls @ 300 mls/hr IV Q24H [facility] Dextrose/Lactated Ringer's (Dextrose 5%-Lactated Ringers) 1,000 mls @ 125 mls/hr IV Q8H [facility] Last Admin: 10/01/21 09:57 Dose: 125 mls/hr Documented by: Magnesium Sulfate 4 gm/ Premix 100 mls @ 50 mls/hr IV ONETIME ONE Stop: 09/30/21 13:14 Last Admin: 09/30/21 12:26 Dose: 50 mls/hr Documented by: Iopamidol (Iopamidol 755 Mg/Ml 500 Ml Multipack Bottle) 100 ml IVPUSH ONETIME ONE Stop: 09/30/21 01:02 Last Admin: 09/30/21 01:01 Dose: 100 ml Documented by: Lorazepam (Lorazepam 2 Mg/Ml Sdv) 0.5 mg IVPUSH ONETIME ONE Stop: 09/30/21 05:25 Last Admin: 09/30/21 21:39 Dose: 0.5 mg Documented by: Lorazepam (Lorazepam 2 Mg/Ml Sdv) Confirm Administered Dose 2 mg .ROUTE .STK-MED ONE Stop: 09/30/21 21:35 Last Admin: 09/30/21 21:41 Dose: Not Given Documented by: Lorazepam (Lorazepam 1 Mg Tab) 1 mg PO ONETIME ONE Stop: 10/01/21 21:35 Last Admin: 10/01/21 22:00 Dose: 1 mg Documented by: Ondansetron HCl (Ondansetron 4 Mg/2 Ml Sdv) 4 mg IVPUSH ONETIME ONE Stop: 09/30/21 00:01 Last Admin: 09/30/21 00:05 Dose: 4 mg Documented by: Pantoprazole Sodium (Pantoprazole 40 Mg Vial) Confirm Administered Dose 40 mg .ROUTE .STK-MED ONE Stop: 09/30/21 05:58 Last Admin: 09/30/21 06:24 Dose: 40 mg Documented by: - Exam General: Alert, Oriented, Cooperative HEENT: Mucous Membr. Moist/[place] Neck: No: Lymphadenopathy Lungs: Clear to Auscultation, Normal Respiratory Effort Cardiovascular: Regular Rate, Regular Rhythm GI/Abdominal Exam: Normal Bowel Sounds, Soft - Patient Data Lab Results Last 24 hrs: Laboratory Results - last 24 hr 10/02/21 10/02/21 Range/Units 05:27 05:27 WBC 4.98 (4.0-11.0) K/uL RBC 3.74 L (4.50-5.90) M/uL Hgb 10.8 L (13.0-17.0) g/dL Hct 33.8 L (38.0-50.0) % MCV 90.4 (80.0-98.0) fL MCH 28.9 (27.0-32.0) pg MCHC 32.0 (31.0-37.0) g/dL RDW Std Deviation 43.8 (28.0-62.0) fl RDW Coeff of Kristin 14 (11.0-15.0) % Plt Count 263 (150-400) K/uL MPV 9.50 (7.40-12.00) fL Neut % (Auto) 58.2 (48.0-80.0) % Lymph % (Auto) 21.7 (16.0-40.0) % [place] % (Auto) 14.7 (0.0-15.0) % Eos % (Auto) 5.0 (0.0-7.0) % Baso % (Auto) 0.4 (0.0-1.5) % Neut # (Auto) 2.9 (1.4-5.7) K/uL Lymph # (Auto) 1.1 (0.6-2.4) K/uL [place] # (Auto) 0.7 (0.0-0.8) K/uL Eos # (Auto) 0.3 (0.0-0.7) K/uL Baso # (Auto) 0.0 (0.0-0.1) K/uL Sodium 141 (136-148) mmol/L Potassium 3.7 (3.5-5.1) mmol/L Chloride 107 (98-107) mmol/L Carbon Dioxide 26.1 (21.0-32.0) mmol/L BUN 11 (7.0-18.0) mg/dL Creatinine 0.7 L (0.8-1.3) mg/dL Est Cr Clr Drug Dosing 88.54 mL/min Estimated GFR (MDRD) > 60.0 ml/min Glucose 99 (74-106) mg/dL Calcium 7.9 L (8.5-10.1) mg/dL Total Bilirubin 0.4 (0.2-1.0) mg/dL AST 25 (15-37) IU/L ALT 15 (14-63) IU/L Alkaline Phosphatase 43 L (46-116) U/L Total Protein 5.5 L (6.4-8.2) g/dL Albumin 2.4 L (3.4-5.0) g/dL Globulin 3.1 (2.6-4.0) g/dL Albumin/Globulin Ratio 0.8 L (0.9-1.6) Result Diagrams: 10/02/21 05:27 10/02/21 05:27 Sepsis Event Note - Evaluation Sepsis Screening Result: No Definite Risk - Focused Exam Vital Signs: Vital Signs Temp Pulse Resp BP Pulse Ox 10/02/21 08:00 96.1 F L 48 L 22 H 129/61 94 L 10/02/21 06:00 98.1 F 50 L 18 164/77 H 95 10/02/21 00:00 97.2 F 50 L 18 121/55 L 95 - Problem List & Annotations (1) CAD (coronary artery disease) SNOMED Code(s): 05614971 Code(s): I25.10 - ATHSCL HEART DISEASE OF [place] CORONARY ARTERY W/O ANG PCTRS Status: Acute Current Visit: Yes (2) SBO (small bowel obstruction) SNOMED Code(s): 296375331 Code(s): K56.609 - UNSP INTESTNL OBST, UNSP TO PARTIAL VERSUS COMPLETE OBST Status: Acute Current Visit: Yes (3) Vomiting SNOMED Code(s): 027711845 Code(s): R11.10 - VOMITING, UNSPECIFIED Status: Acute Current Visit: No Qualifiers: Vomiting type: unspecified Vomiting Intractability: non-intractable Nausea presence: with nausea Qualified Code(s): R11.2 - Nausea with vomiting, unspecified - My Orders Last 24 Hours: My Active Orders 10/02/21 11:17 Ready for Discharge [RC] PER UNIT ROUTINE - Assessment Assessment:: 1. Small bowel obstruction -The patient has been transitioned to a clear liquid diet as per surgery recom mendations, and if he tolerates it well his NG tube can be removed. -Dr. Dasilva from surgery recommends follow-up on outpatient basis with a minimally invasive surgeon and/or GI physician. -For pain we will continue with Dilaudid 1 mg IV push every 3 hours -We will continue to monitor the patient for clinical improvements 2. Coronary artery disease -The patient is on telemetry and we will continue to monitor his heart's electrical function - Plan Plan:: I performed a history and physical exam of the patient and discussed management with resident. I have reviewed the residents note and agree with documented findings and plan unless otherwise specified in my note. I have seen and evaluated the patient and agree with the residents note unless specified in my note
--- NOTE | 2021-10-02 11:42 | PCM.DCSUM1 ---
Discharge Summary - Hospital Course Free Text/Narrative:: The patient is a 76-year-old male, on day 3 of service, with a significant past medical history of coronary artery disease with stent placement, osteoarthritis, anxiety, and pyloric sphincter stenosis, who was admitted to the medical floor due to small bowel obstruction. Dr. Dasilva from surgery assessed the patient throughout his hospital stay and felt surgery was not required. Instead we treated this patient with conservative measures including a NG tube, n.p.o. and advancing diet as tolerated, and analgesic medication. Throughout his course the patient started to improve and his diet was advanced from clear liquids to soft diet which he tolerated well. He was passing gas and had large bowel movements with conservative measures. Today the patient has no pain and feels well. He is to follow-up with his GI specialist in [place] in 4 weeks time. He was also advised to follow-up with his PCP and to be compliant with his medication. He has been educated on returning to the hospital if he has nausea, vomiting, abdominal pain, or any signs of bleeding. - Discharge Data Discharge Date: 10/02/21 Discharge Disposition: Home, Self-Care 01 Condition: Stable - Referral to Home Health Primary Care Physician: Feliz Mendse MD - Discharge Diagnosis/Problem(s) (1) CAD (coronary artery disease) SNOMED Code(s): 87033000 ICD Code: I25.10 - ATHSCL HEART DISEASE OF [place] CORONARY ARTERY W/O ANG PCTRS Status: Acute Current Visit: Yes (2) SBO (small bowel obstruction) SNOMED Code(s): 815433223 ICD Code: K56.609 - UNSP INTESTNL OBST, UNSP TO PARTIAL VERSUS COMPLETE OBST Status: Acute Current Visit: Yes (3) Vomiting SNOMED Code(s): 166694015 ICD Code: R11.10 - VOMITING, UNSPECIFIED Status: Acute Current Visit: No Qualifiers: Vomiting type: unspecified Vomiting Intractability: non-intractable Nausea presence: with nausea Qualified Code(s): R11.2 - Nausea with vomiting, unspecified - Patient Summary/Data Consults: Consultations 09/30/21 05:20 Consult to Physician [CONS] Routine - Patient Instructions Diet: Regular Diet as Tolerated Activity: As Tolerated Showering/Bathing: May Shower Other/Special Instructions: -If you have nausea, vomiting, abdominal pain return to the hospital. -Be compliant with your medications and take them at s cheduled times. -Follow-up with your GI specialist in [place]. -Follow-up with your PCP on 10/07/2021 - Discharge Plan Home Medications: Home Meds Ferrous Gluconate [Iron] 150 units PO BID 01/06/17 [History] Hydrocodone/Acetaminophen [Hydrocodone-Acetamin 10-325 mg] 1 - 2 tab PO Q8H PRN 01/06/17 [History] Olmesartan/Hydrochlorothiazide [Benicar HCT 20-12.5 MG] 1 tab PO DAILY 01/06/17 [History] Omeprazole 20 mg PO BIDAC 01/06/17 [History] Patient Handouts: Bowel Obstruction, [id number] Referrals: Feliz Mendes MD [Primary Care Provider] - 10/07/21 10:15 am - Discharge Summary/Plan Comment DC Time >30 min.: Yes Total # of Minutes for Discharge Time: 35 minutes - Review of Systems General: Denies: Fever, Fatigue HEENT: Denies: Sore Throat Pulmonary: Denies: Shortness of Breath, Cough Cardiovascular: Denies: Chest Pain, Palpitations, Dyspnea on Exertion Gastrointestinal: Denies: Abdominal Pain Genitourinary: Denies: Dysuria - Patient Data Vitals - Most Recent: Last Vital Signs Temp 96.1 F L 10/02/21 08:00 Pulse 48 L 10/02/21 08:00 Resp 22 H 10/02/21 08:00 BP 129/61 10/02/21 08:00 Pulse Ox 94 L 10/02/21 08:00 Weight - Most Recent: 169 lb 9.6 oz I&O - Last 24 hours: Intake & Output 10/01/21 10/02/21 10/02/21 22:59 06:59 14:59 Intake Total 2700 1000 Output Total 0 850 Balance 2700 150 Lab Results - Last 24 hrs: Laboratory Results - last 24 hr 10/02/21 10/02/21 Range/Units 05:27 05:27 WBC 4.98 (4.0-11.0) K/uL RBC 3.74 L (4.50-5.90) M/uL Hgb 10.8 L (13.0-17.0) g/dL Hct 33.8 L (38.0-50.0) % MCV 90.4 (80.0-98.0) fL MCH 28.9 (27.0-32.0) pg MCHC 32.0 (31.0-37.0) g/dL RDW Std Deviation 43.8 (28.0-62.0) fl RDW Coeff of Kristin 14 (11.0-15.0) % Plt Count 263 (150-400) K/uL MPV 9.50 (7.40-12.00) fL Neut % (Auto) 58.2 (48.0-80.0) % Lymph % (Auto) 21.7 (16.0-40.0) % [place] % (Auto) 14.7 (0.0-15.0) % Eos % (Auto) 5.0 (0.0-7.0) % Baso % (Auto) 0.4 (0.0-1.5) % Neut # (Auto) 2.9 (1.4-5.7) K/uL Lymph # (Auto) 1.1 (0.6-2.4) K/uL [place] # (Auto) 0.7 (0.0-0.8) K/uL Eos # (Auto) 0.3 (0.0-0.7) K/uL Baso # (Auto) 0.0 (0.0-0.1) K/uL Sodium 141 (136-148) mmol/L Potassium 3.7 (3.5-5.1) mmol/L Chloride 107 (98-107) mmol/L Carbon Dioxide 26.1 (21.0-32.0) mmol/L BUN 11 (7.0-18.0) mg/dL Creatinine 0.7 L (0.8-1.3) mg/dL Est Cr Clr Drug Dosing 88.54 mL/min Estimated GFR (MDRD) > 60.0 ml/min Glucose 99 (74-106) mg/dL Calcium 7.9 L (8.5-10.1) mg/dL Total Bilirubin 0.4 (0.2-1.0) mg/dL AST 25 (15-37) IU/L ALT 15 (14-63) IU/L Alkaline Phosphatase 43 L (46-116) U/L Total Protein 5.5 L (6.4-8.2) g/dL Albumin 2.4 L (3.4-5.0) g/dL Globulin 3.1 (2.6-4.0) g/dL Albumin/Globulin Ratio 0.8 L (0.9-1.6) Med Orders - Current: Current Medications Acetaminophen (Acetaminophen 325 Mg Tab) 650 mg PO Q6H PRN PRN Reason: Pain Albuterol/Ipratropium (Albuterol/Ipratropium 3.0-0.5 Mg/3 Ml Neb Soln) 3 ml NEB Q6HRRT PRN PRN Reason: Shortness of Breath Enoxaparin Sodium (Enoxaparin 40 Mg/0.4 Ml Syringe) 40 mg SUBCUT Q24H REPLACED BY [facility] Last Admin: 10/02/21 06:06 Dose: 40 mg Documented by: Hydromorphone HCl (Hydromorphone 1 Mg/Ml Syringe) 1 mg IVPUSH Q3H PRN PRN Reason: Pain Last Admin: 10/02/21 06:16 Dose: 1 mg Documented by: Pantoprazole Sodium 40 mg/ (Sodium Chloride) 10 mls @ 300 mls/hr IV Q24H [facility] Last Admin: 10/02/21 06:07 Dose: 300 mls/hr Documented by: Discontinued Medications Alum [place]/Mag [place]/Simeth XS (15 ml/ Lidocaine HCl 5 ml) 0 ml PO ONETIME ONE Stop: 09/30/21 00:36 Last Admin: 09/30/21 00:42 Dose: 15 each Documented by: Famotidine (Famotidine 20 Mg/2 Ml Sdv) 20 mg IVPUSH ONETIME ONE Stop: 09/30/21 00:36 Last Admin: 09/30/21 00:42 Dose: 20 mg Documented by: Fentanyl (Fentanyl 50 Mcg/Ml Sdv) 50 mcg IVPUSH ONETIME ONE Stop: 09/29/21 23:57 Last Admin: 09/30/21 00:05 Dose: 50 mcg Documented by: Hydromorphone HCl (Hydromorphone 1 Mg/Ml Syringe) 1 mg IVPUSH ONETIME ONE Stop: 09/30/21 01:17 Last Admin: 09/30/21 01:20 Dose: 1 mg Documented by: Hydromorphone HCl (Hydromorphone 1 Mg/Ml Syringe) 1 mg IVPUSH ONETIME ONE Stop: 09/30/21 02:49 Last Admin: 09/30/21 03:04 Dose: 1 mg Documented by: Sodium Chloride (Normal Saline) 1,000 mls @ 999 mls/hr IV .BOLUS ONE Stop: 09/30/21 00:56 Last Admin: 09/30/21 00:05 Dose: 999 mls/hr Documented by: Sodium Chloride (Normal Saline) 1,000 mls @ 150 mls/hr IV ASDIRECTED [facility] Last Admin: 09/30/21 03:10 Dose: 150 mls/hr Documented by: Pantoprazole Sodium 40 mg/ (Sodium Chloride) 10 mls @ 300 mls/hr IV Q24H REPLACED BY [facility] Last Admin: 09/30/21 06:27 Dose: 300 mls/hr Documented by: Pantoprazole Sodium 40 mg/ (Sodium Chloride) 10 mls @ 300 mls/hr IV Q24H [facility] Dextrose/Lactated Ringer's (Dextrose 5%-Lactated Ringers) 1,000 mls @ 125 mls/hr IV Q8H REPLACED BY [facility] Last Admin: 10/01/21 09:57 Dose: 125 mls/hr Documented by: Magnesium Sulfate 4 gm/ Premix 100 mls @ 50 mls/hr IV ONETIME ONE Stop: 09/30/21 13:14 Last Admin: 09/30/21 12:26 Dose: 50 mls/hr Documented by: Iopamidol (Iopamidol 755 Mg/Ml 500 Ml Multipack Bottle) 100 ml IVPUSH ONETIME ONE Stop: 09/30/21 01:02 Last Admin: 09/30/21 01:01 Dose: 100 ml Documented by: Lorazepam (Lorazepam 2 Mg/Ml Sdv) 0.5 mg IVPUSH ONETIME ONE Stop: 09/30/21 05:25 Last Admin: 09/30/21 21:39 Dose: 0.5 mg Documented by: Lorazepam (Lorazepam 2 Mg/Ml Sdv) Confirm Administered Dose 2 mg .ROUTE .STK-MED ONE Stop: 09/30/21 21:35 Last Admin: 09/30/21 21:41 Dose: Not Given Documented by: Lorazepam (Lorazepam 1 Mg Tab) 1 mg PO ONETIME ONE Stop: 10/01/21 21:35 Last Admin: 10/01/21 22:00 Dose: 1 mg Documented by: Ondansetron HCl (Ondansetron 4 Mg/2 Ml Sdv) 4 mg IVPUSH ONETIME ONE Stop: 09/30/21 00:01 Last Admin: 09/30/21 00:05 Dose: 4 mg Documented by: Pantoprazole Sodium (Pantoprazole 40 Mg Vial) Confirm Administered Dose 40 mg .ROUTE .STK-MED ONE Stop: 09/30/21 05:58 Last Admin: 09/30/21 06:24 Dose: 40 mg Documented by: - Exam General: Reports: Alert, Oriented, Cooperative HEENT: Reports: Mucous Membr. Moist/[place] Neck: Denies: Lymphadenopathy Lungs: Reports: Clear to Auscultation, Normal Respiratory Effort Cardiovascular: Reports: Regular Rate, Regular Rhythm GI/Abdominal Exam: Normal Bowel Sounds, Soft, Non-Tender
[2021-10-02 12:08] VITALS: BP 152/73; PULSE 51
== END 2021-10-02 12:00 | disposition home or self-care (01) ==
LOC: MW.ED 23:34 → MW.MS 09-30 02:50
PROVIDERS: ADMIT Student in an Organized Health Care Education/Training Program; ATTEND Student in an Organized Health Care Education/Training Program
DX: K56.609 Unspecified intestinal obstruction, unspecified as to partial versus complete obstruction (principal); I25.10 Atherosclerotic heart disease of native coronary artery without angina pectoris; F41.9 Anxiety disorder, unspecified; I10 Essential (primary) hypertension; K21.9 Gastro-esophageal reflux disease without esophagitis; Z90.49 Acquired absence of other specified parts of digestive tract; Z88.8 Allergy status to other drugs, medicaments and biological substances; Z79.899 Other long term (current) drug therapy; Z98.890 Other specified postprocedural states; Z20.822 Contact with and (suspected) exposure to COVID-19
CPT/HCPCS: 36415; 43752; 74018; 74177; 80053; 82947; 83605; 83690; 83735; 84100; 84484; 85025; 96372; 96374; 96375; 96376; 99285; A9270; C9113; G0378; J1170; J1650; J2060; J2405; J3010; J3475; J3490; J7030; J7121; Q9967; U0002

== ENCOUNTER 2023-08-29 07:21 | Emergency (ER) | payer MEDICARE, BC ==
[2023-08-29] MEDS ORDERED: Ondansetron 4 MG/2 ML SDV IVPUSH ONE (07:24)
[2023-08-29] MEDS ORDERED: Naloxone 0.4 MG/ML SDV IVPUSH PRN ×3 (07:36→08:54)
[2023-08-29] MEDS ORDERED: HYDROmorphone 1 MG/ML Syringe IM ONE (07:36)
[2023-08-29] MEDS ORDERED: HYDROmorphone 1 MG/ML Syringe IVPUSH ONE (07:41)
[2023-08-29 07:44] LABS: BASOPHILS PERCENT AUTO 0.2 % (0.0-1.5); EOSINOPHILS PERCENT AUTO 0.1 % (0.0-7.0); HEMATOCRIT 43.3 % (38.0-50.0); HEMOGLOBIN 14.5 g/dL (13.0-17.0); LYMPHOCYTES ABSOLUTE AUTO 0.7 K/uL (0.6-2.4); LYMPHOCYTES PERCENT AUTO 4.9 % (16.0-40.0); MEAN CORPUSCULAR HEMOGLOBIN 29.9 pg (27.0-32.0); MEAN CORPUSCULAR HGB CONC 33.5 g/dL (31.0-37.0); MEAN CORPUSCULAR VOLUME 89.3 fL (80.0-98.0); MONOCYTES ABSOLUTE AUTO 0.6 K/uL (0.0-0.8); MONOCYTES PERCENT AUTO 4.1 % (0.0-15.0); NEUTROPHILS ABSOLUTE AUTO 13.6 K/uL (1.4-5.7); NEUTROPHILS PERCENT AUTO 90.7 % (48.0-80.0); NRBC ABSOLUTE 0 K/uL; PLATELET COUNT,PLT 355 K/uL (150-400); RED BLOOD CELL COUNT 4.85 M/uL (4.50-5.90); WHITE BLOOD CELL COUNT,WBC 14.99 K/uL (4.0-11.0)
[2023-08-29 08:05] VITALS: BP 151/78; PULSE 59
[2023-08-29 08:08] LABS: A/G RATIO 0.9 (0.9-1.6); ALANINE AMINOTRANSFERASE,ALT 25 IU/L (14-63); ALBUMIN 3.7 g/dL (3.4-5.0); ALKALINE PHOSPHATASE 59 U/L (46-116); ASPARTATE AMNIOTRANSFERASE,AST 20 IU/L (15-37); BILIRUBIN TOTAL 0.5 mg/dL (0.2-1.0); BLOOD UREA NITROGEN,BUN 14 mg/dL (7.0-18.0); CALCIUM 9.1 mg/dL (8.5-10.1); CARBON DIOXIDE,CO2 27.7 mmol/L (21.0-32.0); CHLORIDE,CL 98 mmol/L (98-107); GLUCOSE RANDOM 172 mg/dL (74-106); LIPASE 32 U/L (16-77); POTASSIUM,K 3.9 mmol/L (3.5-5.1); PROTEIN TOTAL,TP 7.6 g/dL (6.4-8.2); SODIUM,NA 136 mmol/L (136-148)
[2023-08-29 08:13] LABS: ESTIMATED GFR 78 mL/min (>60)
[2023-08-29] MEDS ORDERED: Morphine 2 MG/ML SYRINGE IVPUSH ONE (08:54)
[2023-08-29] MEDS ORDERED: Sodium Chloride 0.9% 1,000 ML IV ONE ×2 (09:26→10:17)
[2023-08-29] MEDS ORDERED: Lidocaine 2% Viscous Solution 15 ML UD PO PRN (10:04)
[2023-08-29] MEDS ORDERED: LORazepam 2 MG/ML SDV IVPUSH ONE (10:05)
[2023-08-29] MEDS ORDERED: Iopamidol 755 MG/ML 500 ML Multipack Bottle IVPUSH STA (11:42)
[2023-08-29] MEDS ORDERED: Ketorolac 30 MG/ML SDV IVPUSH ONE (12:58)
== END 2023-08-29 13:05 ==
LOC: MW.ED 07:21
DX: K56.609 Unspecified intestinal obstruction, unspecified as to partial versus complete obstruction (principal); I25.10 Atherosclerotic heart disease of native coronary artery without angina pectoris; I10 Essential (primary) hypertension; K21.9 Gastro-esophageal reflux disease without esophagitis; Z88.8 Allergy status to other drugs, medicaments and biological substances; Z79.899 Other long term (current) drug therapy; Z98.890 Other specified postprocedural states
CPT/HCPCS: 36415; 71045; 74177; 80053; 83605; 83690; 84484; 85025; 86850; 86900; 86901; 93005; 96361; 96374; 96375; 99285; J1170; J1885; J2270; J2405; J7030; Q9967; 93010; 99284